=== PATIENT | female | born 1980 | race Caucasian/White ===

== ENCOUNTER 2017-08-27 11:54 | Inpatient (IN) | payer OTHER ==
[2017-08-27 13:03] VITALS: BMI 20.9
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
[2017-08-27] MEDS ORDERED: MAGNESIUM CITRATE 300 ML BOTTLE PO PRN (16:40)
[2017-08-27] MEDS ORDERED: MENTHOL/PHENOL 1 EACH UD MM PRN (16:40)
[2017-08-27] MEDS ORDERED: LOPERAMIDE HCL 2 MG CAPSULE PO PRN (16:40)
[2017-08-27] MEDS ORDERED: guaiFENesin/D-METHORPHAN HB 10 ML UNIT-DOSE CUPS PO PRN (16:40)
[2017-08-27] MEDS ORDERED: MAG HYDROX/AL HYDROX/SIMETH 30 ML UNIT-DOSE CUP PO PRN (16:40)
[2017-08-27] MEDS ORDERED: P-EPHED 60MG/TRIPROLIDI 2.5MG TABLET PO PRN (16:40)
[2017-08-27] MEDS: SULFAMETHOXAZOLE/TRIMETHOPRIM 800MG/160MG D.S. TABLET PO SCH ×2 (20:32→22:09)
[2017-08-27] MEDS: THIAMINE HCL 100 MG TABLET (FP) PO SCH (21:47)
[2017-08-27] MEDS: GABAPENTIN 400 MG CAPSULE (FP) PO SCH (21:47)
[2017-08-27] MEDS ORDERED: traZODone HCL 150 MG TABLET PO SCH (22:00)
[2017-08-27] MEDS: BACITRACIN 0.9 GM PACKET TP SCH (22:09)
[2017-08-27] MEDS: traZODone HCL 50 MG TABLET (FP) PO SCH (22:10)
[2017-08-28] MEDS: GABAPENTIN 400 MG CAPSULE (FP) PO SCH ×3 (06:44→21:43)
[2017-08-28] MEDS ORDERED: METHADONE HCL 40 MG DISPERSABLE TABLET PO SCH (07:00)
[2017-08-28] MEDS ORDERED: METHADONE HCL 10 MG TABLET ONE (07:07)
[2017-08-28] MEDS ORDERED: METHADONE HCL 40 MG DISPERSABLE TABLET ONE (07:08)
[2017-08-28] MEDS: METHADONE 80 MG, METHADONE 10 MG PO SCH (07:11)
[2017-08-28] MEDS: SULFAMETHOXAZOLE/TRIMETHOPRIM 800MG/160MG D.S. TABLET PO SCH ×2 (10:09→21:43)
[2017-08-28] MEDS: BACITRACIN 0.9 GM PACKET TP SCH ×2 (10:09→21:45)
[2017-08-28] MEDS: PRENATAL VITAMINS W/ FOLIC ACID TABLET (FP) PO SCH (10:09)
[2017-08-28] MEDS: OLANZapine 2.5 MG TABLET PO PRN (10:10)
[2017-08-28] MEDS: MAGNESIUM HYDROX 2400MG/30ML ORAL SUSPENSION 30 ML CUP PO PRN (10:32)
[2017-08-28 10:46] LABS: URINE APPEARANCE CLEAR; URINE BILIRUBIN NEGATIVE (NEGATIVE); URINE BLOOD NEGATIVE (NEGATIVE); URINE COLOR LT. YELLOW; URINE GLUCOSE (UA) NEGATIVE (NEGATIVE); URINE KETONE NEGATIVE (NEGATIVE); URINE NITRITE NEGATIVE (NEGATIVE); URINE PROTEIN NEGATIVE (NEGATIVE); URINE UROBILINOGEN 0.2 mg/dL (0.2-1.0)
--- NOTE | 2017-08-28 12:47 | EKG ---
Test Reason : Blood Pressure : / mmHG Vent. Rate : 082 BPM Atrial Rate : 082 BPM P-R Int : 146 ms QRS Dur : 084 ms QT Int : 428 ms P-R-T Axes : 064 063 042 degrees QTc Int : 500 ms NORMAL SINUS RHYTHM POSSIBLE LEFT ATRIAL ENLARGEMENT PROLONGED QT ABNORMAL ECG NO PREVIOUS ECGS AVAILABLE Confirmed by PADMA DEVI MD ([id number]) on 08/28/2017 12:46:29 PM Referred By: Confirmed By:PADMA DEVI MD
[2017-08-28 13:47] LABS: MCHC 31.5 g/dl (32.0-36.0); MEAN CELL VOLUME 82.8 fl (80-96); MEAN PLT VOLUME 7.9 fl (7.5-11.1); PLATELET COUNT 491 K/MM3 (134-434); RDW 15.3 % (11.6-15.6); WHITE BLOOD COUNT 6.9 K/mm3 (4.0-10.0)
[2017-08-28 13:52] LABS: ALBUMIN 3.6 g/dl (3.4-5.0); ANION GAP 8 (8-16); CO2 32 mmol/L (21-32); GLUCOSE,RANDOM 56 mg/dL (74-106); SGOT/AST 42 U/L (15-37); SGPT/ALT 56 U/L (12-78)
[2017-08-28 13:53] LABS: ALK PHOS 92 U/L (45-117); BILIRUBIN,TOTAL 0.3 mg/dL (0.2-1.0); CALCIUM 10.7 mg/dL (8.5-10.1); CREATININE 1.1 mg/dL (0.55-1.02); TOT PROT 7.5 g/dl (6.4-8.2)
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
[2017-08-28 14:53] LABS: HIV 1 & 2 AB NEGATIVE; HIV 1 AGp24 NEGATIVE
[2017-08-28 20:12] LABS: URINE LEUK ESTERASE Negative (NEGATIVE)
[2017-08-28] MEDS: traZODone HCL 50 MG TABLET (FP) PO SCH (21:43)
[2017-08-28] MEDS: THIAMINE HCL 100 MG TABLET (FP) PO SCH (21:44)
[2017-08-29] MEDS ORDERED: METHADONE HCL 40 MG DISPERSABLE TABLET ONE (03:25)
[2017-08-29] MEDS ORDERED: METHADONE HCL 10 MG TABLET ONE (03:25)
[2017-08-29] MEDS: METHADONE 80 MG, METHADONE 10 MG PO SCH (07:04)
[2017-08-29] MEDS: GABAPENTIN 400 MG CAPSULE (FP) PO SCH ×3 (07:05→21:51)
[2017-08-29] MEDS: SULFAMETHOXAZOLE/TRIMETHOPRIM 800MG/160MG D.S. TABLET PO SCH ×2 (10:29→22:34)
[2017-08-29] MEDS: BACITRACIN 0.9 GM PACKET TP SCH ×2 (10:29→21:51)
[2017-08-29] MEDS: PRENATAL VITAMINS W/ FOLIC ACID TABLET (FP) PO SCH (10:29)
[2017-08-29] MEDS: hydrOXYzine PAMOATE 50 MG CAPSULE (FP) PO PRN ×2 (11:16→21:52)
[2017-08-29] MEDS: MAGNESIUM HYDROX 2400MG/30ML ORAL SUSPENSION 30 ML CUP PO PRN (11:17)
--- NOTE | 2017-08-29 13:09 | EKG ---
Test Reason : Blood Pressure : / mmHG Vent. Rate : 069 BPM Atrial Rate : 069 BPM P-R Int : 144 ms QRS Dur : 078 ms QT Int : 424 ms P-R-T Axes : 049 069 043 degrees QTc Int : 454 ms NORMAL SINUS RHYTHM POSSIBLE LEFT ATRIAL ENLARGEMENT BORDERLINE ECG WHEN COMPARED WITH ECG OF 27-AUG-2017 22:33, NO SIGNIFICANT CHANGE WAS FOUND Confirmed by MAGAN PETER MD ([id number]) on 08/29/2017 1:09:09 PM Referred By: Confirmed By:MAGAN PETER MD
[2017-08-29] MEDS: OLANZapine 2.5 MG TABLET PO PRN (13:30)
[2017-08-29] MEDS ORDERED: PT OWN MED DRAWER 7, Y5N ONE (19:52)
[2017-08-29] MEDS: THIAMINE HCL 100 MG TABLET (FP) PO SCH (21:51)
[2017-08-29] MEDS: traZODone HCL 50 MG TABLET (FP) PO SCH (21:51)
[2017-08-30] MEDS ORDERED: METHADONE HCL 10 MG TABLET ONE (05:52)
[2017-08-30] MEDS ORDERED: METHADONE HCL 40 MG DISPERSABLE TABLET ONE (05:52)
[2017-08-30] MEDS: METHADONE 80 MG, METHADONE 10 MG PO SCH (06:33)
[2017-08-30] MEDS: GABAPENTIN 400 MG CAPSULE (FP) PO SCH ×3 (06:34→21:59)
[2017-08-30] MEDS: SULFAMETHOXAZOLE/TRIMETHOPRIM 800MG/160MG D.S. TABLET PO SCH ×2 (10:29→21:58)
[2017-08-30] MEDS: PRENATAL VITAMINS W/ FOLIC ACID TABLET (FP) PO SCH (10:29)
[2017-08-30] MEDS: BACITRACIN 0.9 GM PACKET TP SCH ×2 (10:29→21:58)
[2017-08-30] MEDS: NICOTINE POLACRILEX 2 MG GUM BC PRN (13:04)
[2017-08-30] MEDS: OLANZapine 2.5 MG TABLET PO PRN (13:51)
[2017-08-30] MEDS: DOCUSATE SODIUM 100 MG CAPSULE (FP) PO SCH ×2 (15:05→21:59)
[2017-08-30] MEDS: THIAMINE HCL 100 MG TABLET (FP) PO SCH (21:58)
[2017-08-30] MEDS: traZODone HCL 50 MG TABLET (FP) PO SCH (21:59)
[2017-08-31] MEDS ORDERED: METHADONE HCL 10 MG TABLET ONE (03:25)
[2017-08-31] MEDS ORDERED: METHADONE HCL 40 MG DISPERSABLE TABLET ONE (03:26)
[2017-08-31] MEDS: METHADONE 80 MG, METHADONE 10 MG PO SCH (06:47)
[2017-08-31] MEDS: GABAPENTIN 400 MG CAPSULE (FP) PO SCH ×3 (06:48→21:43)
[2017-08-31] MEDS: IBUPROFEN 400 MG TABLET (FP) PO PRN (07:25)
[2017-08-31] MEDS: SULFAMETHOXAZOLE/TRIMETHOPRIM 800MG/160MG D.S. TABLET PO SCH ×2 (10:05→21:43)
[2017-08-31] MEDS: BACITRACIN 0.9 GM PACKET TP SCH ×2 (10:05→21:43)
[2017-08-31] MEDS: PRENATAL VITAMINS W/ FOLIC ACID TABLET (FP) PO SCH (10:06)
[2017-08-31] MEDS: DOCUSATE SODIUM 100 MG CAPSULE (FP) PO SCH ×2 (10:06→21:43)
[2017-08-31] MEDS: hydrOXYzine PAMOATE 50 MG CAPSULE (FP) PO PRN (10:07)
[2017-08-31] MEDS: MAGNESIUM HYDROX 2400MG/30ML ORAL SUSPENSION 30 ML CUP PO PRN (10:07)
[2017-08-31] MEDS: THIAMINE HCL 100 MG TABLET (FP) PO SCH (21:43)
[2017-08-31] MEDS: traZODone HCL 50 MG TABLET (FP) PO SCH (21:43)
[2017-08-31] MEDS: OLANZapine 2.5 MG TABLET PO PRN (21:45)
[2017-09-01] MEDS ORDERED: METHADONE HCL 10 MG TABLET ONE (03:26)
[2017-09-01] MEDS ORDERED: METHADONE HCL 40 MG DISPERSABLE TABLET ONE (03:26)
[2017-09-01] MEDS: METHADONE 80 MG, METHADONE 10 MG PO SCH (06:30)
[2017-09-01] MEDS: GABAPENTIN 400 MG CAPSULE (FP) PO SCH ×3 (06:30→21:38)
[2017-09-01] MEDS: BACITRACIN 0.9 GM PACKET TP SCH ×2 (10:24→21:38)
[2017-09-01] MEDS: PRENATAL VITAMINS W/ FOLIC ACID TABLET (FP) PO SCH (10:25)
[2017-09-01] MEDS: SULFAMETHOXAZOLE/TRIMETHOPRIM 800MG/160MG D.S. TABLET PO SCH ×2 (10:25→21:38)
[2017-09-01] MEDS: DOCUSATE SODIUM 100 MG CAPSULE (FP) PO SCH ×2 (10:25→21:39)
[2017-09-01] MEDS: OLANZapine 2.5 MG TABLET PO PRN (13:02)
[2017-09-01] MEDS ORDERED: PT OWN MED DRAWER 7, Y5N ONE (19:29)
[2017-09-01] MEDS: traZODone HCL 50 MG TABLET (FP) PO SCH (21:39)
[2017-09-01] MEDS: THIAMINE HCL 100 MG TABLET (FP) PO SCH (21:39)
[2017-09-02] MEDS ORDERED: METHADONE HCL 10 MG TABLET ONE (05:17)
[2017-09-02] MEDS ORDERED: METHADONE HCL 40 MG DISPERSABLE TABLET ONE (05:18)
[2017-09-02] MEDS: METHADONE 80 MG, METHADONE 10 MG PO SCH (06:16)
[2017-09-02] MEDS: GABAPENTIN 400 MG CAPSULE (FP) PO SCH ×3 (06:17→21:47)
[2017-09-02] MEDS: OLANZapine 2.5 MG TABLET PO PRN (08:44)
[2017-09-02] MEDS: IBUPROFEN 400 MG TABLET (FP) PO PRN (08:44)
[2017-09-02] MEDS: DOCUSATE SODIUM 100 MG CAPSULE (FP) PO SCH ×3 (10:30→21:47)
[2017-09-02] MEDS: PRENATAL VITAMINS W/ FOLIC ACID TABLET (FP) PO SCH (10:30)
[2017-09-02] MEDS: BACITRACIN 0.9 GM PACKET TP SCH ×2 (10:30→21:46)
[2017-09-02] MEDS: SULFAMETHOXAZOLE/TRIMETHOPRIM 800MG/160MG D.S. TABLET PO SCH ×2 (10:30→21:47)
[2017-09-02] MEDS: THIAMINE HCL 100 MG TABLET (FP) PO SCH (21:46)
[2017-09-02] MEDS: traZODone HCL 50 MG TABLET (FP) PO SCH (21:47)
[2017-09-02] MEDS: hydrOXYzine PAMOATE 50 MG CAPSULE (FP) PO PRN (21:48)
[2017-09-02] MEDS: IBUPROFEN 600 MG TABLET (FP) PO PRN (21:49)
[2017-09-03] MEDS ORDERED: METHADONE HCL 40 MG DISPERSABLE TABLET ONE (05:46)
[2017-09-03] MEDS ORDERED: METHADONE HCL 10 MG TABLET ONE (05:46)
[2017-09-03] MEDS: GABAPENTIN 400 MG CAPSULE (FP) PO SCH ×3 (06:11→21:47)
[2017-09-03] MEDS: METHADONE 80 MG, METHADONE 10 MG PO SCH (06:11)
[2017-09-03] MEDS: IBUPROFEN 600 MG TABLET (FP) PO PRN ×3 (06:12→21:48)
[2017-09-03] MEDS: PRENATAL VITAMINS W/ FOLIC ACID TABLET (FP) PO SCH (10:20)
[2017-09-03] MEDS: BACITRACIN 0.9 GM PACKET TP SCH ×2 (10:20→21:47)
[2017-09-03] MEDS: DOCUSATE SODIUM 100 MG CAPSULE (FP) PO SCH ×2 (10:21→21:47)
[2017-09-03] MEDS: hydrOXYzine PAMOATE 50 MG CAPSULE (FP) PO PRN ×2 (10:21→21:48)
[2017-09-03] MEDS: ACETAMINOPHEN 325 MG TABLET (FP) PO PRN (10:21)
[2017-09-03] MEDS: SULFAMETHOXAZOLE/TRIMETHOPRIM 800MG/160MG D.S. TABLET PO SCH ×2 (10:21→21:46)
[2017-09-03] MEDS: THIAMINE HCL 100 MG TABLET (FP) PO SCH (21:46)
[2017-09-03] MEDS: traZODone HCL 50 MG TABLET (FP) PO SCH (21:47)
[2017-09-04] MEDS ORDERED: METHADONE 80 MG, METHADONE 10 MG PO SCH (06:00)
[2017-09-04] MEDS ORDERED: METHADONE HCL 10 MG TABLET ONE (06:25)
[2017-09-04] MEDS ORDERED: METHADONE HCL 40 MG DISPERSABLE TABLET ONE (06:25)
[2017-09-04] MEDS: METHADONE 80 MG, METHADONE 10 MG PO SCH (06:33)
[2017-09-04] MEDS: GABAPENTIN 400 MG CAPSULE (FP) PO SCH ×3 (06:34→21:50)
[2017-09-04] MEDS: IBUPROFEN 600 MG TABLET (FP) PO PRN (08:41)
[2017-09-04] MEDS: hydrOXYzine PAMOATE 50 MG CAPSULE (FP) PO PRN ×2 (08:42→13:13)
[2017-09-04] MEDS: DOCUSATE SODIUM 100 MG CAPSULE (FP) PO SCH ×2 (10:25→21:50)
[2017-09-04] MEDS: SULFAMETHOXAZOLE/TRIMETHOPRIM 800MG/160MG D.S. TABLET PO SCH ×2 (10:25→21:50)
[2017-09-04] MEDS: PRENATAL VITAMINS W/ FOLIC ACID TABLET (FP) PO SCH (10:25)
[2017-09-04] MEDS: BACITRACIN 0.9 GM PACKET TP SCH ×2 (10:25→21:50)
[2017-09-04] MEDS: ACETAMINOPHEN 325 MG TABLET (FP) PO PRN (13:13)
[2017-09-04] MEDS: THIAMINE HCL 100 MG TABLET (FP) PO SCH (21:49)
[2017-09-04] MEDS: traZODone HCL 50 MG TABLET (FP) PO SCH (21:50)
[2017-09-05] MEDS ORDERED: METHADONE HCL 40 MG DISPERSABLE TABLET ONE (02:58)
[2017-09-05] MEDS ORDERED: METHADONE HCL 10 MG TABLET ONE (02:58)
[2017-09-05] MEDS: GABAPENTIN 400 MG CAPSULE (FP) PO SCH ×3 (06:17→21:45)
[2017-09-05] MEDS: METHADONE 80 MG, METHADONE 10 MG PO SCH (06:17)
[2017-09-05] MEDS: PRENATAL VITAMINS W/ FOLIC ACID TABLET (FP) PO SCH (10:21)
[2017-09-05] MEDS: BACITRACIN 0.9 GM PACKET TP SCH ×2 (10:21→21:46)
[2017-09-05] MEDS: DOCUSATE SODIUM 100 MG CAPSULE (FP) PO SCH ×2 (10:21→21:45)
[2017-09-05] MEDS: SULFAMETHOXAZOLE/TRIMETHOPRIM 800MG/160MG D.S. TABLET PO SCH ×2 (10:21→21:45)
[2017-09-05] MEDS: hydrOXYzine PAMOATE 50 MG CAPSULE (FP) PO PRN (10:23)
[2017-09-05] MEDS: IBUPROFEN 600 MG TABLET (FP) PO PRN (10:23)
[2017-09-05] MEDS: NICOTINE POLACRILEX 2 MG GUM BC PRN ×2 (10:54→13:17)
[2017-09-05] MEDS: THIAMINE HCL 100 MG TABLET (FP) PO SCH (21:45)
[2017-09-05] MEDS: traZODone HCL 50 MG TABLET (FP) PO SCH (21:45)
[2017-09-06] MEDS ORDERED: METHADONE HCL 10 MG TABLET ONE (03:32)
[2017-09-06] MEDS ORDERED: METHADONE HCL 40 MG DISPERSABLE TABLET ONE (03:32)
[2017-09-06] MEDS: METHADONE 80 MG, METHADONE 10 MG PO SCH (06:14)
[2017-09-06] MEDS: GABAPENTIN 400 MG CAPSULE (FP) PO SCH ×3 (06:15→22:06)
[2017-09-06] MEDS: BACITRACIN 0.9 GM PACKET TP SCH ×2 (10:28→22:06)
[2017-09-06] MEDS: DOCUSATE SODIUM 100 MG CAPSULE (FP) PO SCH ×2 (10:28→22:06)
[2017-09-06] MEDS: SULFAMETHOXAZOLE/TRIMETHOPRIM 800MG/160MG D.S. TABLET PO SCH (10:28)
[2017-09-06] MEDS: PRENATAL VITAMINS W/ FOLIC ACID TABLET (FP) PO SCH (10:28)
[2017-09-06] MEDS: IBUPROFEN 600 MG TABLET (FP) PO PRN (10:30)
[2017-09-06] MEDS: hydrOXYzine PAMOATE 50 MG CAPSULE (FP) PO PRN (10:30)
[2017-09-06] MEDS ORDERED: PT OWN MED DRAWER 7, Y5N ONE (12:38)
[2017-09-06] MEDS: NICOTINE POLACRILEX 2 MG GUM BC PRN (13:12)
[2017-09-06] MEDS ORDERED: COLLOIDAL OATMEAL 1 BAR EACH TP PRN (14:09)
[2017-09-06] MEDS: THIAMINE HCL 100 MG TABLET (FP) PO SCH (22:06)
[2017-09-06] MEDS: traZODone HCL 50 MG TABLET (FP) PO SCH (22:06)
[2017-09-07] MEDS ORDERED: METHADONE HCL 40 MG DISPERSABLE TABLET ONE (06:01)
[2017-09-07] MEDS ORDERED: METHADONE HCL 10 MG TABLET ONE (06:01)
[2017-09-07] MEDS: GABAPENTIN 400 MG CAPSULE (FP) PO SCH ×3 (06:38→21:51)
[2017-09-07] MEDS: METHADONE 80 MG, METHADONE 10 MG PO SCH (06:38)
[2017-09-07] MEDS: BACITRACIN 0.9 GM PACKET TP SCH ×2 (10:23→21:51)
[2017-09-07] MEDS: PRENATAL VITAMINS W/ FOLIC ACID TABLET (FP) PO SCH (10:24)
[2017-09-07] MEDS: DOCUSATE SODIUM 100 MG CAPSULE (FP) PO SCH ×2 (10:24→21:51)
[2017-09-07] MEDS: IBUPROFEN 600 MG TABLET (FP) PO PRN (10:25)
[2017-09-07] MEDS: hydrOXYzine PAMOATE 50 MG CAPSULE (FP) PO PRN (10:25)
[2017-09-07] MEDS: traZODone HCL 50 MG TABLET (FP) PO SCH (21:51)
[2017-09-07] MEDS: THIAMINE HCL 100 MG TABLET (FP) PO SCH (21:51)
[2017-09-08] MEDS ORDERED: METHADONE HCL 10 MG TABLET ONE (05:54)
[2017-09-08] MEDS ORDERED: METHADONE HCL 40 MG DISPERSABLE TABLET ONE (05:54)
[2017-09-08] MEDS: GABAPENTIN 400 MG CAPSULE (FP) PO SCH ×3 (06:47→21:46)
[2017-09-08] MEDS: METHADONE 80 MG, METHADONE 10 MG PO SCH (06:47)
[2017-09-08] MEDS: IBUPROFEN 600 MG TABLET (FP) PO PRN (07:53)
[2017-09-08] MEDS: hydrOXYzine PAMOATE 50 MG CAPSULE (FP) PO PRN ×2 (07:53→13:37)
[2017-09-08] MEDS: BACITRACIN 0.9 GM PACKET TP SCH ×2 (10:19→21:45)
[2017-09-08] MEDS: NICOTINE POLACRILEX 2 MG GUM BC PRN ×2 (10:19→13:38)
[2017-09-08] MEDS: DOCUSATE SODIUM 100 MG CAPSULE (FP) PO SCH ×2 (10:19→21:46)
[2017-09-08] MEDS: PRENATAL VITAMINS W/ FOLIC ACID TABLET (FP) PO SCH (10:19)
[2017-09-08] MEDS: ACETAMINOPHEN 325 MG TABLET (FP) PO PRN (13:38)
[2017-09-08] MEDS: THIAMINE HCL 100 MG TABLET (FP) PO SCH (21:46)
[2017-09-08] MEDS: traZODone HCL 50 MG TABLET (FP) PO SCH (21:46)
[2017-09-09] MEDS ORDERED: METHADONE HCL 40 MG DISPERSABLE TABLET ONE (05:59)
[2017-09-09] MEDS ORDERED: METHADONE HCL 10 MG TABLET ONE (05:59)
[2017-09-09] MEDS: GABAPENTIN 400 MG CAPSULE (FP) PO SCH ×3 (06:46→21:48)
[2017-09-09] MEDS: METHADONE 80 MG, METHADONE 10 MG PO SCH (06:46)
[2017-09-09] MEDS: PRENATAL VITAMINS W/ FOLIC ACID TABLET (FP) PO SCH (10:27)
[2017-09-09] MEDS: DOCUSATE SODIUM 100 MG CAPSULE (FP) PO SCH ×2 (10:27→21:47)
[2017-09-09] MEDS: BACITRACIN 0.9 GM PACKET TP SCH ×2 (10:27→21:45)
[2017-09-09] MEDS: IBUPROFEN 600 MG TABLET (FP) PO PRN (10:29)
[2017-09-09] MEDS: NICOTINE POLACRILEX 2 MG GUM BC PRN ×2 (10:30→13:16)
[2017-09-09] MEDS: hydrOXYzine PAMOATE 50 MG CAPSULE (FP) PO PRN (10:30)
[2017-09-09] MEDS: traZODone HCL 50 MG TABLET (FP) PO SCH (21:47)
[2017-09-09] MEDS: THIAMINE HCL 100 MG TABLET (FP) PO SCH (21:47)
[2017-09-10] MEDS ORDERED: METHADONE HCL 10 MG TABLET ONE ×2 (03:15→03:17)
[2017-09-10] MEDS ORDERED: METHADONE HCL 40 MG DISPERSABLE TABLET ONE (03:15)
[2017-09-10] MEDS: METHADONE 80 MG, METHADONE 10 MG PO SCH (06:39)
[2017-09-10] MEDS: GABAPENTIN 400 MG CAPSULE (FP) PO SCH ×3 (06:40→21:46)
[2017-09-10] MEDS: BACITRACIN 0.9 GM PACKET TP SCH ×2 (10:19→21:47)
[2017-09-10] MEDS: PRENATAL VITAMINS W/ FOLIC ACID TABLET (FP) PO SCH (10:20)
[2017-09-10] MEDS: DOCUSATE SODIUM 100 MG CAPSULE (FP) PO SCH ×2 (10:20→21:47)
[2017-09-10] MEDS: AMMONIUM LACTATE 12% LOTION 225 GM BOTTLE TP PRN (10:21)
[2017-09-10] MEDS: IBUPROFEN 600 MG TABLET (FP) PO PRN (10:22)
[2017-09-10] MEDS: hydrOXYzine PAMOATE 50 MG CAPSULE (FP) PO PRN (10:22)
[2017-09-10] MEDS: NICOTINE POLACRILEX 2 MG GUM BC PRN (10:24)
[2017-09-10] MEDS: THIAMINE HCL 100 MG TABLET (FP) PO SCH (21:46)
[2017-09-10] MEDS: traZODone HCL 50 MG TABLET (FP) PO SCH (21:46)
[2017-09-11] MEDS ORDERED: METHADONE HCL 10 MG TABLET ONE (06:25)
[2017-09-11] MEDS ORDERED: METHADONE HCL 40 MG DISPERSABLE TABLET ONE (06:25)
[2017-09-11] MEDS: METHADONE 80 MG, METHADONE 10 MG PO SCH (06:28)
[2017-09-11] MEDS: GABAPENTIN 400 MG CAPSULE (FP) PO SCH ×3 (06:29→21:53)
[2017-09-11] MEDS: AMMONIUM LACTATE 12% LOTION 225 GM BOTTLE TP PRN (10:36)
[2017-09-11] MEDS: BACITRACIN 0.9 GM PACKET TP SCH ×2 (10:36→21:53)
[2017-09-11] MEDS: hydrOXYzine PAMOATE 50 MG CAPSULE (FP) PO PRN (10:36)
[2017-09-11] MEDS: IBUPROFEN 600 MG TABLET (FP) PO PRN (10:36)
[2017-09-11] MEDS: DOCUSATE SODIUM 100 MG CAPSULE (FP) PO SCH ×2 (10:36→21:53)
[2017-09-11] MEDS: PRENATAL VITAMINS W/ FOLIC ACID TABLET (FP) PO SCH (10:36)
[2017-09-11] MEDS: NICOTINE POLACRILEX 2 MG GUM BC PRN (10:38)
[2017-09-11] MEDS: THIAMINE HCL 100 MG TABLET (FP) PO SCH (21:52)
[2017-09-11] MEDS: traZODone HCL 50 MG TABLET (FP) PO SCH (21:53)
[2017-09-12] MEDS ORDERED: METHADONE HCL 10 MG TABLET ONE (03:15)
[2017-09-12] MEDS ORDERED: METHADONE HCL 40 MG DISPERSABLE TABLET ONE (03:15)
[2017-09-12] MEDS: GABAPENTIN 400 MG CAPSULE (FP) PO SCH ×3 (06:32→21:49)
[2017-09-12] MEDS: METHADONE 80 MG, METHADONE 10 MG PO SCH (06:32)
[2017-09-12] MEDS: NICOTINE POLACRILEX 2 MG GUM BC PRN ×2 (10:02→13:11)
[2017-09-12] MEDS: hydrOXYzine PAMOATE 50 MG CAPSULE (FP) PO PRN (10:02)
[2017-09-12] MEDS: MAGNESIUM HYDROX 2400MG/30ML ORAL SUSPENSION 30 ML CUP PO PRN (10:02)
[2017-09-12] MEDS: IBUPROFEN 600 MG TABLET (FP) PO PRN ×2 (10:02→21:51)
[2017-09-12] MEDS: BACITRACIN 0.9 GM PACKET TP SCH ×2 (10:03→21:49)
[2017-09-12] MEDS: PRENATAL VITAMINS W/ FOLIC ACID TABLET (FP) PO SCH (10:03)
[2017-09-12] MEDS: DOCUSATE SODIUM 100 MG CAPSULE (FP) PO SCH ×2 (10:03→21:49)
[2017-09-12] MEDS ORDERED: SODIUM PHOSPHATE/NA BIPHOS 133 ML ENEMA PR ONE (14:45)
[2017-09-12] MEDS: THIAMINE HCL 100 MG TABLET (FP) PO SCH (21:49)
[2017-09-12] MEDS: traZODone HCL 50 MG TABLET (FP) PO SCH (21:49)
[2017-09-13] MEDS ORDERED: METHADONE HCL 10 MG TABLET ONE (06:00)
[2017-09-13] MEDS ORDERED: METHADONE HCL 40 MG DISPERSABLE TABLET ONE (06:00)
[2017-09-13] MEDS: METHADONE 80 MG, METHADONE 10 MG PO SCH (06:35)
[2017-09-13] MEDS: IBUPROFEN 600 MG TABLET (FP) PO PRN (06:36)
[2017-09-13] MEDS: GABAPENTIN 400 MG CAPSULE (FP) PO SCH ×2 (06:36→22:03)
[2017-09-13] MEDS: hydrOXYzine PAMOATE 50 MG CAPSULE (FP) PO PRN (06:36)
[2017-09-13] MEDS: PRENATAL VITAMINS W/ FOLIC ACID TABLET (FP) PO SCH (10:33)
[2017-09-13] MEDS: DOCUSATE SODIUM 100 MG CAPSULE (FP) PO SCH ×2 (10:34→22:02)
[2017-09-13] MEDS: BACITRACIN 0.9 GM PACKET TP SCH ×2 (10:34→22:03)
[2017-09-13] MEDS ORDERED: MINERAL OIL ENEMA 133 ML ENEMA PR ONE (12:57)
--- NOTE | 2017-09-13 14:36 | PN ---
Psychiatric Progress Note Vital Signs: Vital Signs Period Temp Pulse Resp BP Sys/Schmidt Pulse Ox Last 24 Hr 97.6 F 79 18-18 104/71 Date of Session: 09/13/17 Chief Complaint:: "anxiety, nightmares" HPI: Patient is addressing cocaine, alcohol, opioid dependence comorbid PTSD and Bipolar disorder. ROS: Significant for Hep C,Anemia,H/O Cholecystectomy Current Medications: Active Medications Generic Name Dose Route Start Last Admin Trade Name Freq PRN Reason Stop Dose Admin Acetaminophen 650 mg 08/27/17 16:40 09/08/17 13:38 Tylenol - PO 650 mg Q4H PRN Administration PAIN Al Hydroxide/Mg Hydroxide 30 ml 08/27/17 16:40 Mylanta Oral Suspension - PO Q6H PRN DYSPEPSIA Bacitracin 0.9 gm 08/27/17 22:00 09/13/17 10:34 Bacitracin - TP 0.9 gm BID ZABRINA Administration Bupropion HCl 300 mg 08/27/17 20:15 09/13/17 10:34 Wellbutrin Xl - PO 300 mg DAILY ZABRINA Administration Colloidal Oatmeal 1 applic 09/06/17 14:09 09/07/17 10:27 Aveeno Soap - TP 1 applic DAILY PRN Administration HYGEINE Docusate Sodium 100 mg 08/30/17 14:30 09/13/17 10:34 Colace - PO 100 mg BID ZABRINA Administration Eucalyptus/Menthol/Phenol/Sorbitol 1 each 08/27/17 16:40 Cepastat Lozenge - MM Q4H PRN SORE THROAT Gabapentin 800 mg 08/27/17 22:00 09/13/17 06:36 Neurontin - PO 800 mg TID ZABRINA Administration Guaifenesin 10 ml 08/27/17 16:40 Robitussin Dm - PO Q6H PRN COUGH Hydroxyzine Pamoate 50 mg 08/27/17 16:40 09/13/17 06:36 Vistaril - PO 50 mg Q4H PRN Administration AGITATION Ibuprofen 600 mg 09/02/17 10:44 09/13/17 06:36 Motrin - PO 600 mg Q6H PRN Administration SEVERE PAIN Lactic Acid 1 applic 09/09/17 15:47 09/11/17 10:36 Lac-Hydrin 12 TP 1 applic DAILY PRN Administration DRY SKIN Loperamide HCl 4 mg 11/28/17 16:40 Imodium - PO Q6H PRN DIARRHEA Magnesium Citrate 300 ml 08/27/17 16:40 08/28/17 15:06 Citroma - PO 300 ml Q48H PRN Administration CONSTIPATION Magnesium Hydroxide 30 ml 08/27/17 16:40 09/12/17 10:02 Milk Of Magnesia - PO 30 ml DAILY PRN Administration CONSTIPATION Methadone HCl 80 mg/ Methadone 90 mg 09/11/17 06:00 09/13/17 06:35 HCl 10 mg PO 90 mg DAILY@0600 ZABRINA Administration Nicotine Polacrilex 2 mg 08/27/17 16:40 09/12/17 13:11 Nicorette Gum - BC 2 mg Q2H PRN Administration NICOTINE REPLACEMENT RX Olanzapine 2.5 mg 08/27/17 20:06 09/02/17 08:44 Zyprexa - PO 2.5 mg Q8H PRN Administration ANXIETY Multivit/Folic Acid/Iron 1 tab 08/28/17 10:00 09/13/17 10:33 Vitamins (Sjr) - PO 1 tab DAILY ZABRINA Administration Pseudoephedrine/Triprolidine 1 combo 08/27/17 16:40 08/28/17 10:32 Actifed - PO 1 combo TID PRN Administration NASAL CONGESTION Thiamine HCl 100 mg 08/27/17 22:00 09/12/17 21:49 Vitamin B1 - PO 100 mg HS ZABRINA Administration Trazodone HCl 150 mg 08/27/17 22:00 09/12/17 21:49 Desyrel - PO 150 mg HS ZABRINA Administration Medication(s) Change(s): d/c Vistaril, add Buspar 5 mg po tid, increase Trazodone 200 mg po hs. 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 Total face to face time:: 25 Mental Status Exam - Mental Status Exam Alert and Oriented to: Time, Place, Person Cognitive Function: Good Patient Appearance: Well Groomed Mood: Sad, Anxious Affect: Mood Congruent Patient Behavior: Appropriate, Cooperative Speech Pattern: Appropriate Voice Loudness: Normal Thought Process: Intact, Goal Oriented Thought Disorder: Not Present Hallucinations: Auditory (on and off voices calling her name) Suicidal Ideation: Denies Homicidal Ideation: Denies Insight/Judgement: Fair Sleep: Poorly, Difficulty falling asleep Appetite: Fair Muscle strength/Tone: Normal Gait/Station: Normal Psychiatric Treatment Plan - Problem List (1) Alcohol dependence Current Visit: Yes (2) Bipolar disorder (manic depression) Current Visit: Yes (3) Cocaine dependence Current Visit: Yes (4) Hepatitis C Current Visit: Yes (5) Nicotine dependence Current Visit: Yes Qualifiers: Nicotine product type: cigarettes Substance use status: uncomplicated Qualified Code(s): F17.210 - Nicotine dependence, cigarettes, uncomplicated (6) Opioid dependence on agonist therapy Current Visit: Yes (7) PTSD (post-traumatic stress disorder) Current Visit: Yes
[2017-09-13] MEDS: THIAMINE HCL 100 MG TABLET (FP) PO SCH (22:02)
[2017-09-13] MEDS ORDERED: PT OWN MED DRAWER 7, Y5N ONE (22:05)
[2017-09-13] MEDS: traZODone HCL 100 MG TABLET (FP) PO SCH (22:05)
[2017-09-13] MEDS: busPIRone HCL 5 MG TABLET PO SCH (23:57)
[2017-09-14] MEDS ORDERED: METHADONE HCL 10 MG TABLET ONE (06:44)
[2017-09-14] MEDS ORDERED: METHADONE HCL 40 MG DISPERSABLE TABLET ONE (06:44)
[2017-09-14] MEDS ORDERED: PT OWN MED DRAWER 7, Y5N ONE ×3 (06:49→19:49)
[2017-09-14] MEDS: METHADONE 80 MG, METHADONE 10 MG PO SCH (06:50)
[2017-09-14] MEDS: IBUPROFEN 600 MG TABLET (FP) PO PRN ×2 (06:50→21:46)
[2017-09-14] MEDS: GABAPENTIN 400 MG CAPSULE (FP) PO SCH ×4 (06:50→21:44)
[2017-09-14] MEDS: busPIRone HCL 5 MG TABLET PO SCH ×3 (07:52→21:44)
[2017-09-14] MEDS: BACITRACIN 0.9 GM PACKET TP SCH ×2 (10:06→22:06)
[2017-09-14] MEDS: DOCUSATE SODIUM 100 MG CAPSULE (FP) PO SCH ×2 (10:07→21:45)
[2017-09-14] MEDS: NICOTINE POLACRILEX 2 MG GUM BC PRN ×2 (10:07→13:17)
[2017-09-14] MEDS: PRENATAL VITAMINS W/ FOLIC ACID TABLET (FP) PO SCH (10:07)
[2017-09-14] MEDS: MAGNESIUM HYDROX 2400MG/30ML ORAL SUSPENSION 30 ML CUP PO PRN (13:17)
[2017-09-14] MEDS: traZODone HCL 100 MG TABLET (FP) PO SCH (21:45)
[2017-09-14] MEDS: THIAMINE HCL 100 MG TABLET (FP) PO SCH (22:06)
[2017-09-15] MEDS ORDERED: METHADONE HCL 10 MG TABLET ONE (03:30)
[2017-09-15] MEDS ORDERED: METHADONE HCL 40 MG DISPERSABLE TABLET ONE (03:31)
[2017-09-15] MEDS ORDERED: PT OWN MED DRAWER 7, Y5N ONE ×4 (03:32→19:53)
[2017-09-15] MEDS: METHADONE 80 MG, METHADONE 10 MG PO SCH (06:30)
[2017-09-15] MEDS: busPIRone HCL 5 MG TABLET PO SCH ×3 (06:30→21:48)
[2017-09-15] MEDS: GABAPENTIN 400 MG CAPSULE (FP) PO SCH ×3 (06:30→21:48)
[2017-09-15] MEDS: BACITRACIN 0.9 GM PACKET TP SCH ×2 (09:45→21:51)
[2017-09-15] MEDS: PRENATAL VITAMINS W/ FOLIC ACID TABLET (FP) PO SCH (09:46)
[2017-09-15] MEDS: DOCUSATE SODIUM 100 MG CAPSULE (FP) PO SCH ×2 (09:47→21:48)
[2017-09-15] MEDS: NICOTINE POLACRILEX 2 MG GUM BC PRN ×2 (09:47→13:24)
[2017-09-15] MEDS: IBUPROFEN 600 MG TABLET (FP) PO PRN ×2 (09:47→21:50)
[2017-09-15] MEDS: traZODone HCL 100 MG TABLET (FP) PO SCH (21:49)
[2017-09-15] MEDS: THIAMINE HCL 100 MG TABLET (FP) PO SCH (21:49)
[2017-09-16] MEDS ORDERED: METHADONE HCL 10 MG TABLET ONE (03:12)
[2017-09-16] MEDS ORDERED: METHADONE HCL 40 MG DISPERSABLE TABLET ONE (03:13)
[2017-09-16] MEDS: METHADONE 80 MG, METHADONE 10 MG PO SCH (06:38)
[2017-09-16] MEDS: GABAPENTIN 400 MG CAPSULE (FP) PO SCH ×3 (06:38→21:43)
[2017-09-16] MEDS: busPIRone HCL 5 MG TABLET PO SCH ×3 (06:39→21:43)
[2017-09-16] MEDS: PRENATAL VITAMINS W/ FOLIC ACID TABLET (FP) PO SCH (10:15)
[2017-09-16] MEDS: BACITRACIN 0.9 GM PACKET TP SCH ×2 (10:15→21:43)
[2017-09-16] MEDS: DOCUSATE SODIUM 100 MG CAPSULE (FP) PO SCH ×2 (10:15→22:25)
[2017-09-16] MEDS: NICOTINE POLACRILEX 2 MG GUM BC PRN ×2 (10:59→13:28)
[2017-09-16] MEDS: IBUPROFEN 600 MG TABLET (FP) PO PRN (11:00)
[2017-09-16] MEDS ORDERED: PT OWN MED DRAWER 7, Y5N ONE (11:59)
[2017-09-16] MEDS: traZODone HCL 100 MG TABLET (FP) PO SCH (21:43)
[2017-09-16] MEDS: THIAMINE HCL 100 MG TABLET (FP) PO SCH (21:44)
[2017-09-17] MEDS ORDERED: METHADONE HCL 10 MG TABLET ONE (05:50)
[2017-09-17] MEDS ORDERED: METHADONE HCL 40 MG DISPERSABLE TABLET ONE (05:51)
[2017-09-17] MEDS ORDERED: PT OWN MED DRAWER 7, Y5N ONE ×2 (05:52→12:16)
[2017-09-17] MEDS: METHADONE 80 MG, METHADONE 10 MG PO SCH (06:32)
[2017-09-17] MEDS: busPIRone HCL 5 MG TABLET PO SCH ×3 (06:32→21:51)
[2017-09-17] MEDS: GABAPENTIN 400 MG CAPSULE (FP) PO SCH ×3 (06:32→21:51)
[2017-09-17] MEDS: PRENATAL VITAMINS W/ FOLIC ACID TABLET (FP) PO SCH (10:33)
[2017-09-17] MEDS: BACITRACIN 0.9 GM PACKET TP SCH ×2 (10:33→21:51)
[2017-09-17] MEDS: IBUPROFEN 600 MG TABLET (FP) PO PRN (10:34)
[2017-09-17] MEDS: NICOTINE POLACRILEX 2 MG GUM BC PRN (13:14)
[2017-09-17] MEDS: traZODone HCL 100 MG TABLET (FP) PO SCH (21:51)
[2017-09-17] MEDS: THIAMINE HCL 100 MG TABLET (FP) PO SCH (21:51)
[2017-09-17] MEDS: DOCUSATE SODIUM 100 MG CAPSULE (FP) PO SCH (21:51)
[2017-09-18] MEDS ORDERED: METHADONE HCL 10 MG TABLET ONE (05:33)
[2017-09-18] MEDS ORDERED: METHADONE HCL 40 MG DISPERSABLE TABLET ONE (05:34)
[2017-09-18] MEDS: METHADONE 80 MG, METHADONE 10 MG PO SCH (05:55)
[2017-09-18] MEDS: GABAPENTIN 400 MG CAPSULE (FP) PO SCH (05:57)
[2017-09-18] MEDS: busPIRone HCL 5 MG TABLET PO SCH ×3 (05:57→21:31)
--- NOTE | 2017-09-18 06:43 | PN ---
[facility] Progress Note Note: Patient was seen and evaluated status post a fall. Patient states, " I got up too fast and fell back on my butt. This has happened to me before." Patient is alert and oriented to person, place and time. Denies pain, discomfort, dizziness or any other symptoms at this time. Patient reports history of anemia and vasovagal syncope. V/S B/P 104/66, HR 97, RR 18 and temp. 97.2. Will monitor patient and administer ibuprofen for pain as needed. Occurrence report completed.
[2017-09-18] MEDS: PRENATAL VITAMINS W/ FOLIC ACID TABLET (FP) PO SCH (10:09)
[2017-09-18] MEDS: BACITRACIN 0.9 GM PACKET TP SCH ×2 (10:09→21:30)
[2017-09-18] MEDS: IBUPROFEN 600 MG TABLET (FP) PO PRN (10:10)
[2017-09-18] MEDS: NICOTINE POLACRILEX 2 MG GUM BC PRN (10:11)
--- NOTE | 2017-09-18 11:50 | PN ---
Psychiatric Progress Note Vital Signs: Vital Signs Period Temp Pulse Resp BP Sys/Schmidt Pulse Ox Last 24 Hr 97.2 F-97.5 F 80-97 16-18 100-104/64-66 Date of Session: 09/18/17 Chief Complaint:: Discharge visit HPI: Alcohol,Opioid and Cocaine dependence comorbid with Bipolar disorder,PTSD. ROS: Hep C. Current Medications: Active Medications Generic Name Dose Route Start Last Admin Trade Name Freq PRN Reason Stop Dose Admin Acetaminophen 650 mg 08/27/17 16:40 09/08/17 13:38 Tylenol - PO 650 mg Q4H PRN Administration PAIN Al Hydroxide/Mg Hydroxide 30 ml 08/27/17 16:40 09/13/17 18:18 Mylanta Oral Suspension - PO 30 ml Q6H PRN Administration DYSPEPSIA Bacitracin 0.9 gm 08/27/17 22:00 09/18/17 10:09 Bacitracin - TP 0.9 gm BID ZABRINA Administration Bupropion HCl 300 mg 08/27/17 20:15 09/18/17 10:10 Wellbutrin Xl - PO 300 mg DAILY ZABRINA Administration Buspirone HCl 5 mg 09/13/17 22:00 09/18/17 05:57 Buspar - PO 5 mg TID ZABRINA Administration Colloidal Oatmeal 1 applic 09/06/17 14:09 09/07/17 10:27 Aveeno Soap - TP 1 applic DAILY PRN Administration HYGEINE Docusate Sodium 300 mg 09/16/17 22:00 09/17/17 21:51 Colace - PO 300 mg HS ZABRINA Administration Eucalyptus/Menthol/Phenol/Sorbitol 1 each 08/27/17 16:40 Cepastat Lozenge - MM Q4H PRN SORE THROAT Gabapentin 800 mg 08/27/17 22:00 09/18/17 05:57 Neurontin - PO 800 mg TID ZABRINA Administration Guaifenesin 10 ml 08/27/17 16:40 Robitussin Dm - PO Q6H PRN COUGH Ibuprofen 600 mg 09/02/17 10:44 09/18/17 10:10 Motrin - PO 600 mg Q6H PRN Administration SEVERE PAIN Lactic Acid 1 applic 09/09/17 15:47 09/11/17 10:36 Lac-Hydrin 12 TP 1 applic DAILY PRN Administration DRY SKIN Loperamide HCl 4 mg 08/27/17 16:40 Imodium - PO Q6H PRN DIARRHEA Magnesium Citrate 300 ml 08/27/17 16:40 08/28/17 15:06 Citroma - PO 300 ml Q48H PRN Administration CONSTIPATION Magnesium Hydroxide 30 ml 08/27/17 16:40 09/14/17 13:17 Milk Of Magnesia - PO 30 ml DAILY PRN Administration CONSTIPATION Methadone HCl 80 mg/ Methadone 90 mg 09/19/17 06:00 HCl 10 mg PO 09/25/17 05:59 DAILY@0600 ZABRINA Nicotine Polacrilex 2 mg 08/27/17 16:40 09/18/17 10:11 Nicorette Gum - BC 2 mg Q2H PRN Administration NICOTINE REPLACEMENT RX Olanzapine 2.5 mg 08/27/17 20:06 09/02/17 08:44 Zyprexa - PO 2.5 mg Q8H PRN Administration ANXIETY Multivit/Folic Acid/Iron 1 tab 08/28/17 10:00 09/18/17 10:09 Vitamins (Sjr) - PO 1 tab DAILY ZABRINA Administration Pseudoephedrine/Triprolidine 1 combo 08/27/17 16:40 08/28/17 10:32 Actifed - PO 1 combo TID PRN Administration NASAL CONGESTION Thiamine HCl 100 mg 08/27/17 22:00 09/17/17 21:51 Vitamin B1 - PO 100 mg HS ZABRINA Administration Trazodone HCl 200 mg 09/13/17 22:00 09/17/17 21:51 Desyrel - PO 200 mg HS ZABRINA Administration Current Side Effect: No Lab tests ordered: No Lab tests reviewed: Yes Provider note:: The patient will complete this program tomorrow 09/20/17.She has met her treatment plan and will continue to address her issues on outpatient basis.Patient reports finding that current medications:Wellbutrin XL 300 mg po am,Buspar 5 mg po tid,Gabapentin 800 mg po tid,TRazodone 200 mg po hs help to cope with mood instability,insomnia,depression,anxiety.Scripts for 30 days provided. Patient identifies areas of difficulties,behaviors which contribute to relapse.Supportive therapy proivided including support system, coping skills utilization to maintain recovery. patient is stable for discharge tomorrow 09/19/17. Total face to face time:: 30 Mental Status Exam - Mental Status Exam Alert and Oriented to: Time, Place, Person Cognitive Function: Grossly Intact Patient Appearance: Well Groomed Mood: Euthymic Affect: Appropriate, Mood Congruent Patient Behavior: Cooperative Speech Pattern: Clear Voice Loudness: Normal Thought Process: Goal Oriented Thought Disorder: Not Present Hallucinations: Denies Suicidal Ideation: Denies Homicidal Ideation: Denies Insight/Judgement: Fair Sleep: Fair Appetite: Good Muscle strength/Tone: Normal Gait/Station: Normal Psychiatric Treatment Plan - Problem List (5) Nicotine dependence Qualifiers: Nicotine product type: cigarettes Substance use status: uncomplicated Qualified Code(s): F17.210 - Nicotine dependence, cigarettes, uncomplicated
[2017-09-18] MEDS: GABAPENTIN 300 MG CAPSULE (FP) PO SCH ×2 (13:08→21:30)
[2017-09-18] MEDS ORDERED: PT OWN MED DRAWER 7, Y5N ONE (13:19)
[2017-09-18] MEDS: THIAMINE HCL 100 MG TABLET (FP) PO SCH (21:30)
[2017-09-18] MEDS: DOCUSATE SODIUM 100 MG CAPSULE (FP) PO SCH (21:31)
[2017-09-18] MEDS: traZODone HCL 100 MG TABLET (FP) PO SCH (21:31)
[2017-09-19] MEDS ORDERED: METHADONE HCL 10 MG TABLET ONE (04:19)
[2017-09-19] MEDS ORDERED: METHADONE HCL 40 MG DISPERSABLE TABLET ONE (04:20)
[2017-09-19] MEDS ORDERED: METHADONE 80 MG, METHADONE 10 MG PO SCH (06:00)
[2017-09-19] MEDS ORDERED: METHADONE HCL 10 MG TABLET PO SCH (06:00)
[2017-09-19] MEDS: IBUPROFEN 600 MG TABLET (FP) PO PRN (06:12)
[2017-09-19] MEDS: busPIRone HCL 5 MG TABLET PO SCH (06:13)
[2017-09-19] MEDS: GABAPENTIN 300 MG CAPSULE (FP) PO SCH (06:13)
[2017-09-19 07:02] VITALS: BP 92/62; PULSE 90; TEMP 98
[2017-09-19] MEDS: BACITRACIN 0.9 GM PACKET TP SCH (09:36)
[2017-09-19] MEDS: PRENATAL VITAMINS W/ FOLIC ACID TABLET (FP) PO SCH (09:36)
== END 2017-09-19 10:07 | disposition home or self-care (01) | DRG 772 ==
LOC: YASAS 11:54 → Y3E 17:43
PROVIDERS: ADMIT Psychiatry & Neurology Psychiatry; ATTEND Psychiatry & Neurology Psychiatry
PROC: HZ42ZZZ Group Counseling for Substance Abuse Treatment, Cognitive-Behavioral (ICD-10-PCS; principal; 2017-08-27)
DX: F10.20 Alcohol dependence, uncomplicated (principal); F11.20 Opioid dependence, uncomplicated; F14.20 Cocaine dependence, uncomplicated; F17.210 Nicotine dependence, cigarettes, uncomplicated; F43.10 Post-traumatic stress disorder, unspecified; F31.9 Bipolar disorder, unspecified; L03.114 Cellulitis of left upper limb; B18.2 Chronic viral hepatitis C; W18.39XA Other fall on same level, initial encounter; Y93.89 Activity, other specified; Y92.238 Other place in hospital as the place of occurrence of the external cause
CPT/HCPCS: 36415; 71020-TC; 80053; 81003; 85027; 86593; 87389; 93005; 93010

== ENCOUNTER 2018-01-26 12:02 | Inpatient (IN) | payer OTHER ==
[2018-01-26 12:15] VITALS: BMI 20.2
--- NOTE | 2018-01-26 13:11 | HP ---
CIWA Score - CIWA Score Nausea/Vomitin Muscle Tremors: 3 Anxiety: 3 Agitation: 3 Paroxysmal Sweats: 2 Orientation: 0-Oriented Tacttile Disturbances: 2-Mild Itch/Numbness/Burn Auditory Disturbances: 1-Very Mild Visual Disturbances: 0-None Headache: 2-Mild CIWA-Ar Total Score: 19 Admission ROS BHS - HPI Chief Complaint: i need help to stop drinking alcohol and cocaine Allergies/Adverse Reactions: Allergies Allergy/AdvReac Type Severity Reaction Status Date / Time No Known Allergies Allergy Verified 01/26/18 15:01 History of Present Illness: this 37 years old female with alcohol and cocaine dependence,seeking detox, withdrawal symptom,last detox 11/[facility] completed mmtp 100 mgs/day,last medicated 01/25/18 lost take home bottle bipolar disorder nicotine dependence syncope hepatitis c longest period 18 months Exam Limitations: No Limitations - Ebola screening Have you traveled outside of the country in the last 21 days: No Have you been sick,other than usual withdrawal symptoms: No - Review of Systems Constitutional: Loss of Appetite, Night Sweats, Changes in sleep, Unintentional Wgt. Loss EENT: reports: Nose Congestion Respiratory: reports: No Symptoms reported Cardiac: reports: Palpitations GI: reports: Diarrhea, Nausea, Vomiting, Abdominal cramping : reports: No Symptoms Reported Musculoskeletal: reports: Back Pain, Muscle Pain Integumentary: reports: Dryness Neuro: reports: Headache, Tremors Endocrine: reports: No Symptoms Reported Hematology: reports: No Symptoms Reported, Other (anemia non compliance) Psychiatric: reports: No Sypmtoms Reported, Judgement Intact, Mood/Affect Appropiate, other (bipolar disorder) Patient History - Patient Medical History Hx Anemia: Yes (In past, uncertain about type.no med) Hx Asthma: No Hx Chronic Obstructive Pulmonary Disease (COPD): No Hx Cancer: No Hx Cardiac Disorders: No Hx Congestive Heart Failure: No Hx Hypertension: No Hx Hypercholesterolemia: No Hx Pacemaker: No HX Cerebrovascular Accident: No Hx Seizures: No Hx Dementia: No Hx Diabetes: No Hx Gastrointestinal Disorders: No Hx Liver Disease: No Hx Genitourinary Disorders: No Hx Sexually Transmitted Disorders: Yes (gonorrhea and syphilis) Hx Renal Disease (ESRD): No Hx Thyroid Disease: No Hx Human Immunodeficiency Virus (HIV): No (Last Tested: approx. 2 weeks ago: NEGATIVE.) Hx Hepatitis C: Yes (Diagnosed @ 2013; No treatment yet.) Hx Depression: Yes Hx Suicide Attempt: No Hx Bipolar Disorder: Yes (On med.) Hx Schizophrenia: No Other Medical History: no suicidal,no homicidal - Patient Surgical History Past Surgical History: Yes Hx Neurologic Surgery: No Hx Cataract Extraction: No Hx Cardiac Surgery: No Hx Lung Surgery: No Hx Breast Surgery: No Hx Breast Biopsy: No Hx Abdominal Surgery: No Hx Appendectomy: No Hx Cholecystectomy: Yes (2003.open) Hx Genitourinary Surgery: No Hx Section: No Hx Orthopedic Surgery: Yes (Left elbow, for infection, 2016.) Hx Hysterectomy: No Other Surgical History: Drainage of Abscess on left Hand: approx. 1 week ago. Tubal Ligation: 2007 Anesthesia Reaction: No - PPD History Previous Implant?: Yes Documented Results: Negative w/o proof Implanted On Prior [facility] Admission?: Yes PPD to be Administered?: Yes - Reproductive History Patient is a Female of Child Bearing Age (11 -55 yrs old): Yes Last Menstrual Period: 05/27/17 Patient : No - Smoking Cessation Smoking history: Current every day smoker Have you smoked in the past 12 months: Yes Aproximately how many cigarettes per day: 8 Cigars Per Day: 0 Hx Chewing Tobacco Use: No Initiated information on smoking cessation: Yes 'Breaking Loose' booklet given: 01/26/18 - Substance & Tx. History Hx Alcohol Use: Yes Hx Substance Use: Yes Substance Use Type: Alcohol, Cocaine, Marijuana Hx Substance Use Treatment: Yes (last 11[facility]) - Substances Abused Alcohol Route: Oral Frequency: Daily Amount used: 2 pints of vodka/4 of 24 ozs of beer Age of first use: 13 Date of Last Use: 01/25/18 Cocaine Route: Smoking Frequency: Daily Amount used: 30$ Age of first use: 17 Date of Last Use: 01/25/18 Marijuana/Hashish Route: Smoking Frequency: 3-6 times per week Amount used: 5$ Age of first use: 13 Date of Last Use: 01/25/18 Family Disease History - Family Disease History Family Disease History: Diabetes: Father (HTN, Hypercholesterolemia.), Heart Disease: Grandparent ([place]), Father, Mother (HTN.), [place]: Grandparent, Other: Sister (, MVA.) Admission Physical Exam [facility] - Vital Signs Vital Signs: Vital Signs - 24 hr 01/26/18 12:12 Temperature 97.4 F L Pulse Rate 69 Respiratory 18 Rate Blood Pressure 120/69 - Physical General Appearance: Yes: Moderate Distress, Tremorous, Irritable, Sweating, Anxious HEENTM: Yes: Normal ENT Inspection, LAURENT, Pharynx Normal, Other (no teeth,no denture) Respiratory: Yes: Lungs Clear, Normal Breath Sounds, No Respiratory Distress Neck: Yes: Within Normal Limits Breast: Yes: Breast Exam Deferred Cardiology: Yes: Within Normal Limits, Regular Rhythm, Regular Rate, S1, S2 Abdominal: Yes: Within Normal Limits, Normal Bowel Sounds, Non Tender, Flat Genitourinary: Yes: Within Normal Limits Back: Yes: Muscle Spasm Musculoskeletal: Yes: Within Normal Limits, Back pain, Muscle Pain Extremities: Yes: Tremors Neurological: Yes: public area attendant II-XII NML intact, Fully Oriented, Alert, Motor Strength 5/5 Integumentary: Yes: Dry Lymphatic: Yes: Within Normal Limits - Diagnostic (1) Alcohol dependence with uncomplicated withdrawal Current Visit: Yes Status: Acute (2) Cocaine dependence, uncomplicated Current Visit: No Status: Chronic (3) Hepatitis C Current Visit: No Status: Chronic (4) Methadone maintenance therapy patient Current Visit: No Status: Chronic (5) Nicotine dependence Current Visit: No Status: Chronic Qualifiers: Nicotine product type: cigarettes Substance use status: uncomplicated Qualified Code(s): F17.210 - Nicotine dependence, cigarettes, uncomplicated (6) Cannabis dependence Current Visit: Yes Status: Acute (7) Weight loss Current Visit: Yes Status: Acute (8) Dehydration Current Visit: Yes Status: Acute (9) No natural teeth Current Visit: Yes Status: Acute Cleared for Admission [facility] - Detox or Rehab [facility] Level of Care: Medically Managed Detox Regimen/Protocol: Librium [facility] Breath Alcohol Content Breath Alcohol Content: 0 Urine Pregancy Test - Result Urine Test Results: Negative- NO Line Present Urine Drug Screen - Results Drug Screen Negative: No Urine Drug Screen Results: THC-Marijuana, ILIA-Cocaine, MTD-Methadone, TCA- Tricyclic Antidepress
[2018-01-26] MEDS ORDERED: MAGNESIUM HYDROX 2400MG/30ML ORAL SUSPENSION 30 ML CUP PO PRN (13:25)
[2018-01-26] MEDS ORDERED: guaiFENesin/D-METHORPHAN HB 10 ML UNIT-DOSE CUPS PO PRN (13:25)
[2018-01-26] MEDS ORDERED: chlordiazePOXIDE HCL 25 MG CAPSULE PO PRN (13:25)
[2018-01-26] MEDS ORDERED: ACETAMINOPHEN 325 MG TABLET (FP) PO PRN (13:25)
[2018-01-26] MEDS ORDERED: IBUPROFEN 400 MG TABLET (FP) PO PRN (13:25)
[2018-01-26] MEDS ORDERED: MENTHOL/PHENOL 1 EACH UD MM PRN (13:25)
[2018-01-26] MEDS ORDERED: MAGNESIUM CITRATE 300 ML BOTTLE PO PRN (13:25)
[2018-01-26] MEDS ORDERED: chlordiazePOXIDE HCL 25 MG CAPSULE PO ONE (13:25)
[2018-01-26] MEDS ORDERED: P-EPHED 60MG/TRIPROLIDI 2.5MG TABLET PO PRN (13:25)
[2018-01-26] MEDS ORDERED: MAG HYDROX/AL HYDROX/SIMETH 30 ML UNIT-DOSE CUP PO PRN (13:25)
[2018-01-26] MEDS ORDERED: LOPERAMIDE HCL 2 MG CAPSULE PO PRN (13:25)
[2018-01-26] MEDS: NICOTINE 21 MG/24 HOURS TOPICAL PATCH TD SCH (16:49)
[2018-01-26] MEDS: chlordiazePOXIDE HCL 25 MG CAPSULE PO SCH ×2 (16:49→22:22)
[2018-01-26 18:41] LABS: URINE APPEARANCE TURBID; URINE BILIRUBIN NEGATIVE (<2.0 mg/dL); URINE BLOOD NEGATIVE (NEGATIVE); URINE COLOR YELLOW; URINE GLUCOSE (UA) NEGATIVE (NEGATIVE); URINE KETONE NEGATIVE (NEGATIVE); URINE NITRITE NEGATIVE (NEGATIVE)
[2018-01-26 18:44] LABS: URINE LEUK ESTERASE 3+ (NEGATIVE); URINE PROTEIN 1+ (NEGATIVE)
[2018-01-26 18:46] LABS: EPI CELLS MODERATE /HPF (FEW); URINE HYALINE CAST 3 /lpf
[2018-01-26] MEDS ORDERED: MELATONIN 5 MG TABLETS PO PRN (22:00)
[2018-01-26] MEDS: THIAMINE HCL 100 MG TABLET (FP) PO SCH (22:22)
[2018-01-27] MEDS: chlordiazePOXIDE HCL 25 MG CAPSULE PO SCH ×4 (06:04→22:31)
[2018-01-27] MEDS ORDERED: METHADONE HCL 10 MG TABLET PO SCH (09:45)
[2018-01-27 09:47] LABS: HEMATOCRIT 35.7 % (32.4-45.2); HEMOGLOBIN 11.6 GM/dL (10.7-15.3); MCH 27.6 pg (25.7-33.7); MCHC 32.5 g/dl (32.0-36.0); MEAN PLT VOLUME 8.8 fl (7.5-11.1); PLATELET COUNT 307 K/MM3 (134-434); RDW 15.2 % (11.6-15.6); WHITE BLOOD COUNT 6.7 K/mm3 (4.0-10.0)
[2018-01-27] MEDS ORDERED: METHADONE 80 MG, METHADONE 20 MG PO ONE (10:00)
[2018-01-27] MEDS ORDERED: METHADONE HCL 10 MG TABLET ONE (10:03)
[2018-01-27] MEDS ORDERED: METHADONE HCL 40 MG DISPERSABLE TABLET ONE (10:03)
[2018-01-27 10:04] LABS: ALBUMIN 3.6 g/dl (3.4-5.0); ANION GAP 2 (8-16); BLOOD UREA NITROGEN 18 mg/dL (7-18); CALCIUM 9.2 mg/dL (8.5-10.1); CHLORIDE 99 mmol/L (98-107); CO2 37 mmol/L (21-32); GLUCOSE,RANDOM 94 mg/dL (74-106); POTASSIUM 3.6 mmol/L (3.5-5.1); SGOT/AST 44 U/L (15-37); SGPT/ALT 36 U/L (12-78); SODIUM 138 mmol/L (136-145)
[2018-01-27] MEDS: PRENATAL VITAMINS W/ FOLIC ACID TABLET (FP) PO SCH (10:06)
[2018-01-27 10:07] LABS: ALK PHOS 134 U/L (45-117); BILIRUBIN,TOTAL 0.4 mg/dL (0.2-1.0); CREATININE 0.8 mg/dL (0.55-1.02); TOT PROT 7.5 g/dl (6.4-8.2)
[2018-01-27] MEDS: NICOTINE 21 MG/24 HOURS TOPICAL PATCH TD SCH (10:07)
--- NOTE | 2018-01-27 10:11 | PN ---
S CIWA - CIWA Score Nausea/Vomitin-Mild Nausea/No Vomiting Muscle Tremors: 4-Moderate,w/Arms Extend Anxiety: 4-Mod. Anxious/Guarded Agitation: 4-Moderately Restless Paroxysmal Sweats: 1-Minimal Palms Moist Orientation: 0-Oriented Tacttile Disturbances: 1-Very Mild Itch/Numbness Auditory Disturbances: 0-None Visual Disturbances: 0-None Headache: 0-None Present CIWA-Ar Total Score: 15 BHS Progress Note (SOAP) Subjective: sweat tremor mild gi distress trouble sleeping at night Objective: 01/27/18 10:10 Vital Signs Temperature 98.1 F 01/27/18 06:00 Pulse Rate 54 L 01/27/18 06:00 Respiratory Rate 16 01/27/18 06:00 Blood Pressure 94/52 01/27/18 06:00 O2 Sat by Pulse Oximetry (%) Laboratory Last Values Urine Color Yellow 01/26/18 18:00 Urine Appearance Turbid 01/26/18 18:00 Urine pH 8.0 (5.0-8.0) 01/26/18 18:00 Ur Specific [place] 1.020 (1.001-1.035) 01/26/18 18:00 Urine Protein 1+ (NEGATIVE) H 01/26/18 18:00 Urine Glucose (UA) Negative (NEGATIVE) 01/26/18 18:00 Urine Ketones Negative (NEGATIVE) 01/26/18 18:00 Urine Blood Negative (NEGATIVE) 01/26/18 18:00 Urine Nitrite Negative (NEGATIVE) 01/26/18 18:00 Urine Bilirubin Negative (<2.0 mg/dL) 01/26/18 18:00 Urine Urobilinogen 2.0 mg/dL (0.2-1.0) H 01/26/18 18:00 Ur Leukocyte Esterase 3+ (NEGATIVE) H 01/26/18 18:00 Urine WBC (Auto) 9 /hpf (3-5) 01/26/18 18:00 Urine RBC (Auto) 4 /hpf (0-3) 01/26/18 18:00 Ur Epithelial Cells Moderate /HPF (FEW) 01/26/18 18:00 Hyaline Casts 3 /lpf 01/26/18 18:00 lab noted repeat ua Assessment: 01/27/18 10:11 withdrawal sx rule out uti Plan: continue detox repeat ua
--- NOTE | 2018-01-27 12:28 | EKG ---
Test Reason : Blood Pressure : / mmHG Vent. Rate : 070 BPM Atrial Rate : 070 BPM P-R Int : 140 ms QRS Dur : 084 ms QT Int : 440 ms P-R-T Axes : 065 073 053 degrees QTc Int : 475 ms NORMAL SINUS RHYTHM NORMAL ECG WHEN COMPARED WITH ECG OF 26-JAN-2018 15:56, NO SIGNIFICANT CHANGE WAS FOUND Confirmed by RICHIE CURRY MD ([id number]) on 01/27/2018 12:28:16 PM Referred By: Abel Singh Confirmed By:RICHIE CURRY MD
--- NOTE | 2018-01-27 12:29 | EKG ---
Test Reason : Blood Pressure : / mmHG Vent. Rate : 057 BPM Atrial Rate : 057 BPM P-R Int : 146 ms QRS Dur : 094 ms QT Int : 506 ms P-R-T Axes : 061 071 061 degrees QTc Int : 492 ms SINUS BRADYCARDIA PROLONGED QT ABNORMAL ECG WHEN COMPARED WITH ECG OF 28-AUG-2017 08:33, NO SIGNIFICANT CHANGE WAS FOUND Confirmed by RICHIE CURRY MD ([id number]) on 01/27/2018 12:29:23 PM Referred By: Abel Singh Confirmed By:RICHIE CURRY MD
[2018-01-27] MEDS ORDERED: GABAPENTIN 400 MG CAPSULE (FP) PO SCH (15:00)
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
[2018-01-27] MEDS: buPROPion HCL 100 MG TABLET PO SCH (15:26)
[2018-01-27] MEDS ORDERED: traZODone HCL 100 MG TABLET (FP) PO SCH (22:00)
[2018-01-27] MEDS ORDERED: OLANZapine 10 MG TABLET PO SCH (22:00)
[2018-01-27] MEDS: THIAMINE HCL 100 MG TABLET (FP) PO SCH (22:31)
[2018-01-27 22:39] VITALS: TEMP 97.5
[2018-01-28] MEDS ORDERED: METHADONE HCL 40 MG DISPERSABLE TABLET ONE (04:39)
[2018-01-28] MEDS ORDERED: METHADONE HCL 10 MG TABLET ONE (04:39)
[2018-01-28] MEDS ORDERED: METHADONE 80 MG, METHADONE 20 MG PO SCH (06:00)
[2018-01-28] MEDS: chlordiazePOXIDE HCL 25 MG CAPSULE PO SCH (06:08)
[2018-01-28 06:55] VITALS: BP 98/54; PULSE 70
[2018-01-28] MEDS: PRENATAL VITAMINS W/ FOLIC ACID TABLET (FP) PO SCH (09:25)
[2018-01-28] MEDS: buPROPion HCL 100 MG TABLET PO SCH (09:25)
--- NOTE | 2018-01-28 10:28 | DS ---
[facility] Detox Discharge Summary Admission Date: 01/26/18 Discharge Date: 01/28/18 - History Present History: Alcohol Dependence Additional Comments: 37 years old female admitted on 01/26/18 for alcohol withdrawal sx patient insists to leave the facility now that she has to filler picker her check patient is alert oriented x 3 no acute distress denies suicidal denies homocidal no self destructive behavior encourage the patient follow up with primary care provider and attend community self help groups patient agrees to consider - Physical Exam Results Vital Signs: Vital Signs Temperature 97.5 F L 01/28/18 06:00 Pulse Rate 70 01/28/18 06:00 Respiratory Rate 18 01/28/18 06:00 Blood Pressure 98/54 01/28/18 06:00 O2 Sat by Pulse Oximetry (%) Pertinent Admission Physical Exam Findings: withdrawal sx Vital Signs Temperature 97.5 F L 01/28/18 06:00 Pulse Rate 70 01/28/18 06:00 Respiratory Rate 18 01/28/18 06:00 Blood Pressure 98/54 01/28/18 06:00 O2 Sat by Pulse Oximetry (%) Laboratory Last Values WBC 6.7 K/mm3 (4.0-10.0) 01/27/18 07:00 RBC 4.20 M/mm3 (3.60-5.2) 01/27/18 07:00 Hgb 11.6 GM/dL (10.7-15.3) 01/27/18 07:00 Hct 35.7 % (32.4-45.2) 01/27/18 07:00 MCV 85.0 fl (80-96) 01/27/18 07:00 MCH 27.6 pg (25.7-33.7) 01/27/18 07:00 MCHC 32.5 g/dl (32.0-36.0) 01/27/18 07:00 RDW 15.2 % (11.6-15.6) 01/27/18 07:00 Plt Count 307 K/MM3 (134-434) D 01/27/18 07:00 MPV 8.8 fl (7.5-11.1) D 01/27/18 07:00 Sodium 138 mmol/L (136-145) 01/27/18 07:00 Potassium 3.6 mmol/L (3.5-5.1) 01/27/18 07:00 Chloride 99 mmol/L (98-107) 01/27/18 07:00 Carbon Dioxide 37 mmol/L (21-32) H 01/27/18 07:00 Anion Gap 2 (8-16) L 01/27/18 07:00 BUN 18 mg/dL (7-18) 01/27/18 07:00 Creatinine 0.8 mg/dL (0.55-1.02) 01/27/18 07:00 Creat Clearance w eGFR > 60 (>60) 01/27/18 07:00 Random Glucose 94 mg/dL (74-106) 01/27/18 07:00 Calcium 9.2 mg/dL (8.5-10.1) 01/27/18 07:00 Total Bilirubin 0.4 mg/dL (0.2-1.0) D 01/27/18 07:00 AST 44 U/L (15-37) H 01/27/18 07:00 ALT 36 U/L (12-78) 01/27/18 07:00 Alkaline Phosphatase 134 U/L (45-117) H 01/27/18 07:00 Total Protein 7.5 g/dl (6.4-8.2) 01/27/18 07:00 Albumin 3.6 g/dl (3.4-5.0) 01/27/18 07:00 Urine Color Yellow 01/26/18 18:00 Urine Appearance Turbid 01/26/18 18:00 Urine pH 8.0 (5.0-8.0) 01/26/18 18:00 Ur Specific [place] 1.020 (1.001-1.035) 01/26/18 18:00 Urine Protein 1+ (NEGATIVE) H 01/26/18 18:00 Urine Glucose (UA) Negative (NEGATIVE) 01/26/18 18:00 Urine Ketones Negative (NEGATIVE) 01/26/18 18:00 Urine Blood Negative (NEGATIVE) 01/26/18 18:00 Urine Nitrite Negative (NEGATIVE) 01/26/18 18:00 Urine Bilirubin Negative (<2.0 mg/dL) 01/26/18 18:00 Urine Urobilinogen 2.0 mg/dL (0.2-1.0) H 01/26/18 18:00 Ur Leukocyte Esterase 3+ (NEGATIVE) H 01/26/18 18:00 Urine WBC (Auto) 9 /hpf (3-5) 01/26/18 18:00 Urine RBC (Auto) 4 /hpf (0-3) 01/26/18 18:00 Ur Epithelial Cells Moderate /HPF (FEW) 01/26/18 18:00 Hyaline Casts 3 /lpf 01/26/18 18:00 RPR Titer Nonreactive (NONREACTIVE) 01/27/18 07:00 HIV 1&2 Antibody Screen Negative 01/27/18 07:00 HIV P24 Antigen Negative 01/27/18 07:00 lab noted - Treatment Hospital Course: Detox Protocol Followed, Responded well Patient has Accepted a Rehab Referral to: as per arranged by the counselor - Medication Discharge Medications: Ambulatory Orders Docusate Sodium [Colace -] 300 mg PO HS #30 capsule 09/18/17 Gabapentin 800 mg PO TID #90 tablet 09/18/17 traZODone HCL [Desyrel -] 200 mg PO HS #60 tablet 09/18/17 Gabapentin [Neurontin -] 800 mg PO Q8H #180 capsule 09/27/17 Bupropion HCl [Wellbutrin -] 150 mg PO BID 01/26/18 Gabapentin [Neurontin] 800 mg PO TID 01/26/18 Methadone [Dolophine -] 20 mg PO DAILY 01/26/18 Methadone [Dolophine -] 80 mg PO DAILY 01/26/18 Olanzapine [ZyPREXA -] 10 mg PO BID 01/26/18 - Diagnosis (1) Alcohol dependence with uncomplicated withdrawal Status: Acute (2) Nicotine dependence Status: Acute Qualifiers: Nicotine product type: cigarettes Substance use status: in withdrawal Qualified Code(s): F17.213 - Nicotine dependence, cigarettes, with withdrawal (3) Hepatitis C Status: Resolved Qualifiers: Viral hepatitis chronicity: carrier Qualified Code(s): B18.2 - Chronic viral hepatitis C (4) Methadone maintenance therapy patient Status: Chronic - AMA Did Patient Leave Against Medical Advice: Yes
[2018-01-28] MEDS ORDERED: chlordiazePOXIDE 5 MG CAPSULE PO SCH (17:00)
[2018-01-29] MEDS ORDERED: chlordiazePOXIDE HCL 10 MG CAPSULE PO SCH (17:00)
== END 2018-01-28 09:52 | disposition left against medical advice (07) | DRG 770 ==
LOC: YASAS 12:02 → Y6N 13:46
PROVIDERS: ADMIT Internal Medicine; ATTEND Internal Medicine
PROC: HZ2ZZZZ Detoxification Services for Substance Abuse Treatment (ICD-10-PCS; principal; 2018-01-26)
DX: F10.230 Alcohol dependence with withdrawal, uncomplicated (principal); F11.20 Opioid dependence, uncomplicated; F14.20 Cocaine dependence, uncomplicated; F12.20 Cannabis dependence, uncomplicated; F17.213 Nicotine dependence, cigarettes, with withdrawal; F43.10 Post-traumatic stress disorder, unspecified; F31.9 Bipolar disorder, unspecified; B18.2 Chronic viral hepatitis C; G47.00 Insomnia, unspecified; E86.0 Dehydration; Z87.42 Personal history of other diseases of the female genital tract; Z87.898 Personal history of other specified conditions
CPT/HCPCS: 36415; 80053; 81003; 81015; 85027; 86593; 87389; 93005; 93010

== ENCOUNTER 2018-02-10 09:04 | Inpatient (IN) | payer OTHER ==
[2018-02-10 10:47] VITALS: BMI 20.2
--- NOTE | 2018-02-10 14:31 | HP ---
CIWA Score - CIWA Score Nausea/Vomitin Muscle Tremors: 3 Anxiety: 3 Agitation: 2 Paroxysmal Sweats: 1-Minimal Palms Moist Orientation: 0-Oriented Tacttile Disturbances: 1-Very Mild Itch/Numbness Auditory Disturbances: 1-Very Mild Visual Disturbances: 0-None Headache: 2-Mild CIWA-Ar Total Score: 16 Admission ROS [facility] - HPI Chief Complaint: i need help to stop drinking alcohol,xanax,cocaine and marijuana Allergies/Adverse Reactions: Allergies Allergy/AdvReac Type Severity Reaction Status Date / Time No Known Allergies Allergy Verified 02/10/18 12:42 History of Present Illness: this 37 years old female with alcohol,cocaine,xanax,marijuana dependence,mmtp 110 mgs/day,last medicated 02/09/18 - Ebola screening Have you traveled outside of the country in the last 21 days: No (N) Have you had contact with anyone from an Ebola affected area: No Have you been sick,other than usual withdrawal symptoms: No Do you have a fever: No - Review of Systems Constitutional: Loss of Appetite, Malaise, Night Sweats, Changes in sleep, Weakness, Unintentional Wgt. Loss EENT: reports: Nose Congestion Respiratory: reports: No Symptoms reported Cardiac: reports: No Symptoms Reported GI: reports: Diarrhea, Nausea, Vomiting, Abdominal cramping : reports: No Symptoms Reported Musculoskeletal: reports: Back Pain, Muscle Pain Integumentary: reports: Dryness Neuro: reports: Headache, Tremors Endocrine: reports: No Symptoms Reported Hematology: reports: No Symptoms Reported Psychiatric: reports: No Sypmtoms Reported, Judgement Intact, Mood/Affect Appropiate, Orientated x3, other (bipolar,ptsd) Patient History - Patient Medical History Hx Anemia: Yes (In past, uncertain about type.no med) Hx Asthma: No Hx Chronic Obstructive Pulmonary Disease (COPD): No Hx Cancer: No Hx Cardiac Disorders: No Hx Congestive Heart Failure: No Hx Hypertension: No Hx Hypercholesterolemia: No Hx Pacemaker: No HX Cerebrovascular Accident: No Hx Seizures: No Hx Dementia: No Hx Diabetes: No Hx Gastrointestinal Disorders: Yes (acid reflux) Hx Liver Disease: No Hx Genitourinary Disorders: No Hx Sexually Transmitted Disorders: No Hx Renal Disease (ESRD): No Hx Thyroid Disease: No Hx Human Immunodeficiency Virus (HIV): No (Last Tested: approx. 2 weeks ago: NEGATIVE.) Hx Hepatitis C: Yes (Diagnosed @ 2013; No treatment yet.) Hx Depression: Yes Hx Suicide Attempt: Yes (pill overdose in 04/2017) Hx Bipolar Disorder: Yes (On med.) Hx Schizophrenia: No Other Medical History: no suicicdal,no homicidal - Patient Surgical History Past Surgical History: Yes Hx Neurologic Surgery: No Hx Cataract Extraction: No Hx Cardiac Surgery: No Hx Lung Surgery: No Hx Breast Surgery: No Hx Breast Biopsy: No Hx Abdominal Surgery: No Hx Appendectomy: No Hx Cholecystectomy: Yes (2002.open) Hx Genitourinary Surgery: No Hx Section: No Hx Orthopedic Surgery: Yes (Left elbow, for infection, 2016.) Hx Hysterectomy: No Other Surgical History: Drainage of Abscess on left Hand: approx. 1 week ago. Tubal Ligation: 2007 Anesthesia Reaction: No - PPD History Previous Implant?: Yes Documented Results: Positive w/o proof PPD to be Administered?: No - Reproductive History Patient is a Female of Child Bearing Age (11 -55 yrs old): Yes Last Menstrual Period: 05/27/17 Patient : No - Smoking Cessation Smoking history: Current every day smoker Have you smoked in the past 12 months: Yes Aproximately how many cigarettes per day: 10 Cigars Per Day: 0 Hx Chewing Tobacco Use: No Initiated information on smoking cessation: Yes 'Breaking Loose' booklet given: 02/10/18 - Substance & Tx. History Hx Alcohol Use: Yes Hx Substance Use: Yes Substance Use Type: Alcohol, Cocaine, Tranquilizers Hx Substance Use Treatment: Yes - Substances Abused Crack Route: Smoking Frequency: Daily Amount used: $50 Age of first use: 17 Date of Last Use: 02/09/18 Alcohol-beer Route: Oral Frequency: Daily Amount used: 1-6 pk. (24 oz.) Age of first use: 13 Date of Last Use: 02/09/18 Xanax Route: Oral Frequency: Daily Amount used: 6 tabs. (1 mg.) Age of first use: 19 Date of Last Use: 02/09/18 Marijuana Route: Smoking Frequency: 1-2 times per week Amount used: $10 Age of first use: 13 Date of Last Use: 02/09/18 Family Disease History - Family Disease History Family Disease History: Diabetes: Father (HTN, Hypercholesterolemia.), Heart Disease: Grandparent ([place]), Father, Mother (HTN.alcohol sober), [place]: Grandparent, Other: Sister (, MVA.) Admission Physical Exam [facility] - Vital Signs Vital Signs: Vital Signs - 24 hr 02/10/18 10:37 Temperature 98.3 F Pulse Rate 73 Respiratory 18 Rate Blood Pressure 126/85 - Physical General Appearance: Yes: Moderate Distress, Tremorous, Irritable, Sweating, Anxious HEENTM: Yes: Normal ENT Inspection, LAURENT, Pharynx Normal Respiratory: Yes: Lungs Clear, Normal Breath Sounds, No Respiratory Distress Neck: Yes: Within Normal Limits, Supple, Trachea in good position Breast: Yes: Breast Exam Deferred Cardiology: Yes: Within Normal Limits, Regular Rhythm, Regular Rate, S1, S2 Abdominal: Yes: Within Normal Limits, Normal Bowel Sounds, Non Tender, Soft Genitourinary: Yes: Within Normal Limits Back: Yes: Within Normal Limits, Normal Inspection, CVA Tenderness, Muscle Spasm Musculoskeletal: Yes: full range of Motion, Back pain, Joint Stiffness, Muscle Pain Extremities: Yes: Within Normal Limits, Normal Range of Motion, Tremors Neurological: Yes: industrial engineering manager II-XII NML intact, Fully Oriented, Alert, Motor Strength 5/5 Integumentary: Yes: Dry Lymphatic: Yes: Within Normal Limits - Diagnostic (1) Alcohol dependence with uncomplicated withdrawal Current Visit: No Status: Acute (2) Cannabis dependence Current Visit: No Status: Acute (3) Cocaine dependence Current Visit: No Status: Acute (4) Dehydration Current Visit: No Status: Acute (5) Insomnia Current Visit: No Status: Acute (6) Nicotine dependence Current Visit: No Status: Acute Qualifiers: Nicotine product type: cigarettes Substance use status: in withdrawal Qualified Code(s): F17.213 - Nicotine dependence, cigarettes, with withdrawal (7) Weight loss Current Visit: No Status: Acute (8) Methadone maintenance therapy patient Current Visit: No Status: Chronic (9) Hepatitis C Current Visit: No Status: Resolved Qualifiers: Viral hepatitis chronicity: carrier Qualified Code(s): B18.2 - Chronic viral hepatitis C Cleared for Admission [facility] - Detox or Rehab [facility] Level of Care: Medically Managed Detox Regimen/Protocol: Valium S Breath Alcohol Content Breath Alcohol Content: 0 Urine Pregancy Test - Result Urine Test Results: Negative- NO Line Present Urine Drug Screen - Results Drug Screen Negative: No Urine Drug Screen Results: THC-Marijuana, ILIA-Cocaine, BZO-Benzodiazepines, MTD- Methadone
[2018-02-10] MEDS ORDERED: MAGNESIUM HYDROX 2400MG/30ML ORAL SUSPENSION 30 ML CUP PO PRN (14:46)
[2018-02-10] MEDS ORDERED: NICOTINE POLACRILEX 2 MG GUM BC PRN (14:46)
[2018-02-10] MEDS ORDERED: ACETAMINOPHEN 325 MG TABLET (FP) PO PRN (14:46)
[2018-02-10] MEDS ORDERED: MENTHOL/PHENOL 1 EACH UD MM PRN (14:46)
[2018-02-10] MEDS ORDERED: guaiFENesin/D-METHORPHAN HB 10 ML UNIT-DOSE CUPS PO PRN (14:46)
[2018-02-10] MEDS ORDERED: MAG HYDROX/AL HYDROX/SIMETH 30 ML UNIT-DOSE CUP PO PRN (14:46)
[2018-02-10] MEDS ORDERED: LOPERAMIDE HCL 2 MG CAPSULE PO PRN (14:46)
[2018-02-10] MEDS ORDERED: hydrOXYzine PAMOATE 25 MG CAPSULE (FP) PO PRN (14:46)
[2018-02-10] MEDS ORDERED: MAGNESIUM CITRATE 300 ML BOTTLE PO PRN (14:46)
[2018-02-10] MEDS ORDERED: P-EPHED 60MG/TRIPROLIDI 2.5MG TABLET PO PRN (14:46)
[2018-02-10] MEDS ORDERED: diazePAM 5 MG TABLET PO ONE (15:00)
[2018-02-10] MEDS ORDERED: METHADONE HCL 10 MG TABLET PO SCH (15:00)
[2018-02-10] MEDS ORDERED: METHADONE 80 MG, METHADONE 30 MG PO ONE (15:15)
[2018-02-10] MEDS ORDERED: METHADONE HCL 40 MG DISPERSABLE TABLET ONE (15:33)
[2018-02-10] MEDS ORDERED: METHADONE HCL 10 MG TABLET ONE (15:34)
[2018-02-10] MEDS: NICOTINE 21 MG/24 HOURS TOPICAL PATCH TD SCH (15:43)
[2018-02-10 17:40] LABS: URINE APPEARANCE TURBID; URINE BILIRUBIN NEGATIVE (<2.0 mg/dL); URINE COLOR YELLOW; URINE GLUCOSE (UA) NEGATIVE (NEGATIVE); URINE KETONE NEGATIVE (NEGATIVE); URINE LEUK ESTERASE TRACE (NEGATIVE); URINE NITRITE NEGATIVE (NEGATIVE); URINE PROTEIN 1+ (NEGATIVE)
[2018-02-10 17:55] LABS: EPI CELLS RARE /HPF (FEW); URINE MUCUS FEW; YEAST MODERATE
[2018-02-10] MEDS: diazePAM 5 MG TABLET PO PRN (19:52)
[2018-02-10] MEDS ORDERED: MELATONIN 5 MG TABLETS PO PRN (22:00)
[2018-02-10] MEDS: diazePAM 5 MG TABLET PO SCH (22:27)
[2018-02-10] MEDS: THIAMINE HCL 100 MG TABLET (FP) PO SCH (22:27)
[2018-02-11] MEDS ORDERED: METHADONE HCL 40 MG DISPERSABLE TABLET ONE (04:43)
[2018-02-11] MEDS ORDERED: METHADONE HCL 10 MG TABLET ONE (04:43)
[2018-02-11] MEDS: diazePAM 5 MG TABLET PO SCH ×3 (05:51→22:16)
[2018-02-11] MEDS: METHADONE 80 MG, METHADONE 30 MG PO SCH (05:51)
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
[2018-02-11] MEDS ORDERED: buPROPion HCL 100 MG TABLET PO SCH (10:15)
[2018-02-11 10:18] LABS: HEMATOCRIT 30.8 % (32.4-45.2); MCH 27.7 pg (25.7-33.7); MCHC 32.5 g/dl (32.0-36.0); MEAN CELL VOLUME 85.1 fl (80-96); MEAN PLT VOLUME 7.6 fl (7.5-11.1); PLATELET COUNT 354 K/MM3 (134-434); RBC 3.62 M/mm3 (3.60-5.2); RDW 16.3 % (11.6-15.6); WHITE BLOOD COUNT 7.5 K/mm3 (4.0-10.0)
[2018-02-11 10:25] LABS: CHLORIDE 106 mmol/L (98-107); POTASSIUM 4.2 mmol/L (3.5-5.1); SODIUM 143 mmol/L (136-145)
[2018-02-11] MEDS: PRENATAL VITAMINS W/ FOLIC ACID TABLET (FP) PO SCH (10:27)
[2018-02-11] MEDS: diazePAM 5 MG TABLET PO PRN ×2 (10:27→17:46)
[2018-02-11] MEDS: NICOTINE 21 MG/24 HOURS TOPICAL PATCH TD SCH (10:28)
[2018-02-11 10:43] LABS: ALBUMIN 2.9 g/dl (3.4-5.0); ALK PHOS 124 U/L (45-117); ANION GAP 4 (8-16); BILIRUBIN,TOTAL 0.3 mg/dL (0.2-1.0); BLOOD UREA NITROGEN 11 mg/dL (7-18); CALCIUM 8.3 mg/dL (8.5-10.1); CO2 33 mmol/L (21-32); CREATININE 0.7 mg/dL (0.55-1.02); GLUCOSE,RANDOM 97 mg/dL (74-106); SGOT/AST 34 U/L (15-37); SGPT/ALT 32 U/L (12-78); TOT PROT 6.3 g/dl (6.4-8.2)
[2018-02-11] MEDS: IBUPROFEN 400 MG TABLET (FP) PO PRN ×2 (11:33→22:17)
--- NOTE | 2018-02-11 12:01 | EKG ---
Test Reason : Blood Pressure : / mmHG Vent. Rate : 055 BPM Atrial Rate : 055 BPM P-R Int : 092 ms QRS Dur : 092 ms QT Int : 448 ms P-R-T Axes : 024 073 058 degrees QTc Int : 428 ms SINUS BRADYCARDIA WITH SHORT HI OTHERWISE NORMAL ECG WHEN COMPARED WITH ECG OF 27-JAN-2018 08:28, QT HAS SHORTENED Confirmed by MD JAYCEE, MILES ([id number]) on 02/11/2018 12:01:18 PM Referred By: Confirmed By:MILES CHAMPION MD
--- NOTE | 2018-02-11 12:26 | PN ---
[facility] CIWA - CIWA Score Nausea/Vomitin-Mild Nausea/No Vomiting Muscle Tremors: 4-Moderate,w/Arms Extend Anxiety: 4-Mod. Anxious/Guarded Agitation: 4-Moderately Restless Paroxysmal Sweats: 1-Minimal Palms Moist Orientation: 0-Oriented Tacttile Disturbances: 0-None Auditory Disturbances: 0-None Visual Disturbances: 0-None Headache: 0-None Present CIWA-Ar Total Score: 14 S Progress Note (SOAP) Subjective: sweat tremor trouble sleep at night anxiety restlessness c/o left foot swell x 3-4 weeks that she trip on her left foot Objective: 02/11/18 12:26 Vital Signs Temperature 97.9 F 02/11/18 09:06 Pulse Rate 64 02/11/18 09:06 Respiratory Rate 16 02/11/18 09:06 Blood Pressure 104/70 02/11/18 09:06 O2 Sat by Pulse Oximetry (%) Laboratory Last Values WBC 7.5 K/mm3 (4.0-10.0) 02/11/18 07:00 RBC 3.62 M/mm3 (3.60-5.2) 02/11/18 07:00 Hgb 10.0 GM/dL (10.7-15.3) L D 02/11/18 07:00 Hct 30.8 % (32.4-45.2) L 02/11/18 07:00 MCV 85.1 fl (80-96) 02/11/18 07:00 MCH 27.7 pg (25.7-33.7) 02/11/18 07:00 MCHC 32.5 g/dl (32.0-36.0) 02/11/18 07:00 RDW 16.3 % (11.6-15.6) H 02/11/18 07:00 Plt Count 354 K/MM3 (134-434) 02/11/18 07:00 MPV 7.6 fl (7.5-11.1) D 02/11/18 07:00 Sodium 143 mmol/L (136-145) 02/11/18 07:00 Potassium 4.2 mmol/L (3.5-5.1) 02/11/18 07:00 Chloride 106 mmol/L (98-107) 02/11/18 07:00 Carbon Dioxide 33 mmol/L (21-32) H 02/11/18 07:00 Anion Gap 4 (8-16) L 02/11/18 07:00 BUN 11 mg/dL (7-18) 02/11/18 07:00 Creatinine 0.7 mg/dL (0.55-1.02) 02/11/18 07:00 Creat Clearance w eGFR > 60 (>60) 02/11/18 07:00 Random Glucose 97 mg/dL (74-106) 02/11/18 07:00 Calcium 8.3 mg/dL (8.5-10.1) L 02/11/18 07:00 Total Bilirubin 0.3 mg/dL (0.2-1.0) D 02/11/18 07:00 AST 34 U/L (15-37) 02/11/18 07:00 ALT 32 U/L (12-78) 02/11/18 07:00 Alkaline Phosphatase 124 U/L (45-117) H 02/11/18 07:00 Total Protein 6.3 g/dl (6.4-8.2) L 02/11/18 07:00 Albumin 2.9 g/dl (3.4-5.0) L 02/11/18 07:00 Urine Color Yellow 02/10/18 14:00 Urine Appearance Turbid 02/10/18 14:00 Urine pH 7.0 (5.0-8.0) 02/10/18 14:00 Ur Specific [place] 1.019 (1.001-1.035) 02/10/18 14:00 Urine Protein 1+ (NEGATIVE) H 02/10/18 14:00 Urine Glucose (UA) Negative (NEGATIVE) 02/10/18 14:00 Urine Ketones Negative (NEGATIVE) 02/10/18 14:00 Urine Blood Negative (NEGATIVE) 02/10/18 14:00 Urine Nitrite Negative (NEGATIVE) 02/10/18 14:00 Urine Bilirubin Negative (<2.0 mg/dL) 02/10/18 14:00 Urine Urobilinogen 2.0 mg/dL (0.2-1.0) H 02/10/18 14:00 Ur Leukocyte Esterase Trace (NEGATIVE) 02/10/18 14:00 Urine WBC (Auto) 31 /hpf (3-5) 02/10/18 14:00 Urine RBC (Auto) 10 /hpf (0-3) 02/10/18 14:00 Ur Epithelial Cells Rare /HPF (FEW) 02/10/18 14:00 Urine Mucus Few 02/10/18 14:00 Urine Yeast Moderate 02/10/18 14:00 RPR Titer Nonreactive (NONREACTIVE) 02/11/18 07:00 lab noted 02/11/18 12:29 repeat ua 02/11/18 12:30 left foot swell +1 +2 pulses skin intact no bruises noted no redness able to move great toe second and third toe limited mobility Assessment: 02/11/18 12:32 withdrawal sx rule out left fracture Plan: continue detox x ray of the left foot repeat ua
[2018-02-11] MEDS: GABAPENTIN 300 MG CAPSULE (FP) PO SCH ×2 (14:20→22:16)
[2018-02-11] MEDS: THIAMINE HCL 100 MG TABLET (FP) PO SCH (22:16)
[2018-02-11] MEDS: QUEtiapine FUMARATE 100 MG TABLET (FP) PO SCH (22:16)
[2018-02-12] MEDS ORDERED: METHADONE HCL 10 MG TABLET ONE (04:25)
[2018-02-12] MEDS ORDERED: METHADONE HCL 40 MG DISPERSABLE TABLET ONE (04:25)
[2018-02-12] MEDS: diazePAM 5 MG TABLET PO PRN ×3 (05:39→17:41)
[2018-02-12] MEDS: METHADONE 80 MG, METHADONE 30 MG PO SCH (05:43)
[2018-02-12] MEDS: GABAPENTIN 300 MG CAPSULE (FP) PO SCH ×3 (05:44→22:38)
[2018-02-12 10:10] LABS: URINE APPEARANCE CLOUDY; URINE COLOR AMBER; URINE GLUCOSE (UA) NEGATIVE (NEGATIVE); URINE KETONE NEGATIVE (NEGATIVE); URINE NITRITE NEGATIVE (NEGATIVE); URINE UROBILINOGEN NEGATIVE mg/dL (0.2-1.0)
[2018-02-12 10:12] LABS: URINE LEUK ESTERASE 1+ (NEGATIVE); URINE PROTEIN 2+ (NEGATIVE)
[2018-02-12 10:31] LABS: EPI CELLS MODERATE /HPF (FEW); TRIPLE PHOSPHATE CRYSTAL RARE /hpf (NONE SEEN); URINE BACTERIA MODERATE /hpf (NONE SEEN); URINE MUCUS FEW
[2018-02-12] MEDS: PRENATAL VITAMINS W/ FOLIC ACID TABLET (FP) PO SCH (10:47)
[2018-02-12] MEDS: diazePAM 5 MG TABLET PO SCH ×2 (10:48→22:38)
[2018-02-12] MEDS: IBUPROFEN 400 MG TABLET (FP) PO PRN (10:50)
[2018-02-12] MEDS: NICOTINE 21 MG/24 HOURS TOPICAL PATCH TD SCH (10:50)
--- NOTE | 2018-02-12 12:33 | PN ---
[facility] CIWA - CIWA Score Nausea/Vomitin-Mild Nausea/No Vomiting Muscle Tremors: 3 Anxiety: 3 Agitation: 3 Paroxysmal Sweats: 1-Minimal Palms Moist Orientation: 0-Oriented Tacttile Disturbances: 0-None Auditory Disturbances: 0-None Visual Disturbances: 0-None Headache: 0-None Present CIWA-Ar Total Score: 11 S Progress Note (SOAP) Subjective: sweat tremor anxiety restlessness trouble sitting still trouble sleep at night Objective: 02/12/18 12:35 Vital Signs Temperature 98.1 F 02/12/18 10:28 Pulse Rate 65 02/12/18 10:28 Respiratory Rate 16 02/12/18 10:28 Blood Pressure 94/64 02/12/18 10:28 O2 Sat by Pulse Oximetry (%) Laboratory Last Values WBC 7.5 K/mm3 (4.0-10.0) 02/11/18 07:00 RBC 3.62 M/mm3 (3.60-5.2) 02/11/18 07:00 Hgb 10.0 GM/dL (10.7-15.3) L D 02/11/18 07:00 Hct 30.8 % (32.4-45.2) L 02/11/18 07:00 MCV 85.1 fl (80-96) 02/11/18 07:00 MCH 27.7 pg (25.7-33.7) 02/11/18 07:00 MCHC 32.5 g/dl (32.0-36.0) 02/11/18 07:00 RDW 16.3 % (11.6-15.6) H 02/11/18 07:00 Plt Count 354 K/MM3 (134-434) 02/11/18 07:00 MPV 7.6 fl (7.5-11.1) D 02/11/18 07:00 Sodium 143 mmol/L (136-145) 02/11/18 07:00 Potassium 4.2 mmol/L (3.5-5.1) 02/11/18 07:00 Chloride 106 mmol/L (98-107) 02/11/18 07:00 Carbon Dioxide 33 mmol/L (21-32) H 02/11/18 07:00 Anion Gap 4 (8-16) L 02/11/18 07:00 BUN 11 mg/dL (7-18) 02/11/18 07:00 Creatinine 0.7 mg/dL (0.55-1.02) 02/11/18 07:00 Creat Clearance w eGFR > 60 (>60) 02/11/18 07:00 Random Glucose 97 mg/dL (74-106) 02/11/18 07:00 Calcium 8.3 mg/dL (8.5-10.1) L 02/11/18 07:00 Total Bilirubin 0.3 mg/dL (0.2-1.0) D 02/11/18 07:00 AST 34 U/L (15-37) 02/11/18 07:00 ALT 32 U/L (12-78) 02/11/18 07:00 Alkaline Phosphatase 124 U/L (45-117) H 02/11/18 07:00 Total Protein 6.3 g/dl (6.4-8.2) L 02/11/18 07:00 Albumin 2.9 g/dl (3.4-5.0) L 02/11/18 07:00 Urine Color Kayla 02/11/18 15:00 Urine Appearance Cloudy 02/11/18 15:00 Urine pH 7.0 (5.0-8.0) 02/11/18 15:00 Ur Specific [place] 1.025 (1.001-1.035) 02/11/18 15:00 Urine Protein 2+ (NEGATIVE) H 02/11/18 15:00 Urine Glucose (UA) Negative (NEGATIVE) 02/11/18 15:00 Urine Ketones Negative (NEGATIVE) 02/11/18 15:00 Urine Blood Negative (NEGATIVE) 02/11/18 15:00 Urine Nitrite Negative (NEGATIVE) 02/11/18 15:00 Urine Bilirubin 2.0 (<2.0 mg/dL) 02/11/18 15:00 Urine Urobilinogen Negative mg/dL (0.2-1.0) 02/11/18 15:00 Ur Leukocyte Esterase 1+ (NEGATIVE) H 02/11/18 15:00 Urine WBC (Auto) 8 /hpf (3-5) 02/11/18 15:00 Urine RBC (Auto) 5 /hpf (0-3) 02/11/18 15:00 Ur Epithelial Cells Moderate /HPF (FEW) 02/11/18 15:00 Triple Phos Crystals Rare /hpf (NONE SEEN) 02/11/18 15:00 Urine Bacteria Moderate /hpf (NONE SEEN) 02/11/18 15:00 Urine Mucus Few 02/11/18 15:00 Urine Yeast Moderate 02/10/18 14:00 RPR Titer Nonreactive (NONREACTIVE) 02/11/18 07:00 lab noted 02/12/18 12:38 uti Assessment: 02/12/18 12:38 withdrawal sx uti Plan: continue detox bactrim ds bid
[2018-02-12] MEDS: SULFAMETHOXAZOLE/TRIMETHOPRIM 800MG/160MG D.S. TABLET PO SCH ×2 (13:29→22:38)
[2018-02-12] MEDS ORDERED: buPROPion HCL 100 MG TABLET PO SCH (17:00)
[2018-02-12] MEDS: QUEtiapine FUMARATE 100 MG TABLET (FP) PO SCH (22:38)
[2018-02-12] MEDS: THIAMINE HCL 100 MG TABLET (FP) PO SCH (22:38)
[2018-02-13] MEDS ORDERED: METHADONE HCL 40 MG DISPERSABLE TABLET ONE (04:31)
[2018-02-13] MEDS ORDERED: METHADONE HCL 10 MG TABLET ONE (04:31)
[2018-02-13] MEDS: GABAPENTIN 300 MG CAPSULE (FP) PO SCH ×3 (05:49→22:25)
[2018-02-13] MEDS: METHADONE 80 MG, METHADONE 30 MG PO SCH (05:49)
[2018-02-13] MEDS: diazePAM 5 MG TABLET PO PRN (06:33)
--- NOTE | 2018-02-13 12:46 | PN ---
[facility] Progress Note (SOAP) Subjective: feeling better less sweat no tremor sleep better at night Objective: 02/13/18 12:44 Vital Signs Temperature 97.9 F 02/13/18 10:29 Pulse Rate 103 H 02/13/18 10:29 Respiratory Rate 18 02/13/18 10:29 Blood Pressure 95/58 02/13/18 10:29 O2 Sat by Pulse Oximetry (%) Laboratory Last Values WBC 7.5 K/mm3 (4.0-10.0) 02/11/18 07:00 RBC 3.62 M/mm3 (3.60-5.2) 02/11/18 07:00 Hgb 10.0 GM/dL (10.7-15.3) L D 02/11/18 07:00 Hct 30.8 % (32.4-45.2) L 02/11/18 07:00 MCV 85.1 fl (80-96) 02/11/18 07:00 MCH 27.7 pg (25.7-33.7) 02/11/18 07:00 MCHC 32.5 g/dl (32.0-36.0) 02/11/18 07:00 RDW 16.3 % (11.6-15.6) H 02/11/18 07:00 Plt Count 354 K/MM3 (134-434) 02/11/18 07:00 MPV 7.6 fl (7.5-11.1) D 02/11/18 07:00 Sodium 143 mmol/L (136-145) 02/11/18 07:00 Potassium 4.2 mmol/L (3.5-5.1) 02/11/18 07:00 Chloride 106 mmol/L (98-107) 02/11/18 07:00 Carbon Dioxide 33 mmol/L (21-32) H 02/11/18 07:00 Anion Gap 4 (8-16) L 02/11/18 07:00 BUN 11 mg/dL (7-18) 02/11/18 07:00 Creatinine 0.7 mg/dL (0.55-1.02) 02/11/18 07:00 Creat Clearance w eGFR > 60 (>60) 02/11/18 07:00 Random Glucose 97 mg/dL (74-106) 02/11/18 07:00 Calcium 8.3 mg/dL (8.5-10.1) L 02/11/18 07:00 Total Bilirubin 0.3 mg/dL (0.2-1.0) D 02/11/18 07:00 AST 34 U/L (15-37) 02/11/18 07:00 ALT 32 U/L (12-78) 02/11/18 07:00 Alkaline Phosphatase 124 U/L (45-117) H 02/11/18 07:00 Total Protein 6.3 g/dl (6.4-8.2) L 02/11/18 07:00 Albumin 2.9 g/dl (3.4-5.0) L 02/11/18 07:00 Urine Color [place] 02/11/18 15:00 Urine Appearance Cloudy 02/11/18 15:00 Urine pH 7.0 (5.0-8.0) 02/11/18 15:00 Ur Specific [place] 1.025 (1.001-1.035) 02/11/18 15:00 Urine Protein 2+ (NEGATIVE) H 02/11/18 15:00 Urine Glucose (UA) Negative (NEGATIVE) 02/11/18 15:00 Urine Ketones Negative (NEGATIVE) 02/11/18 15:00 Urine Blood Negative (NEGATIVE) 02/11/18 15:00 Urine Nitrite Negative (NEGATIVE) 02/11/18 15:00 Urine Bilirubin 2.0 (<2.0 mg/dL) 02/11/18 15:00 Urine Urobilinogen Negative mg/dL (0.2-1.0) 02/11/18 15:00 Ur Leukocyte Esterase 1+ (NEGATIVE) H 02/11/18 15:00 Urine WBC (Auto) 8 /hpf (3-5) 02/11/18 15:00 Urine RBC (Auto) 5 /hpf (0-3) 02/11/18 15:00 Ur Epithelial Cells Moderate /HPF (FEW) 02/11/18 15:00 Triple Phos Crystals Rare /hpf (NONE SEEN) 02/11/18 15:00 Urine Bacteria Moderate /hpf (NONE SEEN) 02/11/18 15:00 Urine Mucus Few 02/11/18 15:00 Urine Yeast Moderate 02/10/18 14:00 RPR Titer Nonreactive (NONREACTIVE) 02/11/18 07:00 lab noted increase oral fluid personal hygiene Assessment: 02/13/18 12:45 mild withdrawal sx Plan: medically supervised detox
[2018-02-13] MEDS: SULFAMETHOXAZOLE/TRIMETHOPRIM 800MG/160MG D.S. TABLET PO SCH ×2 (13:31→22:25)
[2018-02-13] MEDS: PRENATAL VITAMINS W/ FOLIC ACID TABLET (FP) PO SCH (13:31)
[2018-02-13] MEDS: diazePAM 5 MG TABLET PO SCH ×2 (13:33→22:25)
[2018-02-13] MEDS: NICOTINE 21 MG/24 HOURS TOPICAL PATCH TD SCH (13:33)
[2018-02-13] MEDS ORDERED: hydrOXYzine PAMOATE 50 MG CAPSULE (FP) PO PRN (17:07)
--- NOTE | 2018-02-13 17:13 | PN ---
[facility] Progress Note Note: Patient c/o of feeling anxious and requested additional dose of valium. As per patient the Vistaril has not been helping with her symptoms. Patient was very belligerent and irate during my assessment. Patient alleges that she has not had spoken a counselor regarding her after care. [employer] Supervisor spoke with counselor Armida and endorse she has spoken to patient several times today. Vital Signs Temperature 98.1 F 02/13/18 15:03 Pulse Rate 73 02/13/18 15:03 Respiratory Rate 18 02/13/18 15:03 Blood Pressure 96/61 02/13/18 15:03 O2 Sat by Pulse Oximetry (%) Patient currently on vitaril 25 mg, dose adjusted to 50 mg q4h PRN increase fluids continue to monitor
[2018-02-13] MEDS: THIAMINE HCL 100 MG TABLET (FP) PO SCH (22:25)
[2018-02-13] MEDS: QUEtiapine FUMARATE 100 MG TABLET (FP) PO SCH (22:25)
[2018-02-14] MEDS ORDERED: METHADONE HCL 40 MG DISPERSABLE TABLET ONE (05:34)
[2018-02-14] MEDS ORDERED: METHADONE HCL 10 MG TABLET ONE (05:35)
[2018-02-14] MEDS: GABAPENTIN 300 MG CAPSULE (FP) PO SCH (06:02)
[2018-02-14] MEDS: METHADONE 80 MG, METHADONE 30 MG PO SCH (06:02)
--- NOTE | 2018-02-14 09:12 | DS ---
[facility] Detox Discharge Summary Admission Date: 02/10/18 Discharge Date: 02/14/18 - History Present History: Alcohol Dependence Additional Comments: 37 years old female admitted 02/10/18 for alcohol withdrawal sx completed alcohol detox regimen tolerated well denies alcohol withdrawal sx alert oriented x 3 no acute distress speech coherent wants to go to [facility] rehab facility for methadone maintenance and addiction brief motivational intervention x 5" patient determines to maintain sober - Physical Exam Results Vital Signs: Vital Signs Temperature 97.9 F 02/14/18 06:22 Pulse Rate 76 02/14/18 06:22 Respiratory Rate 16 02/14/18 06:22 Blood Pressure 100/67 02/14/18 06:22 O2 Sat by Pulse Oximetry (%) Pertinent Admission Physical Exam Findings: withdrawal sx Vital Signs Temperature 97.9 F 02/14/18 06:22 Pulse Rate 76 02/14/18 06:22 Respiratory Rate 16 02/14/18 06:22 Blood Pressure 100/67 02/14/18 06:22 O2 Sat by Pulse Oximetry (%) Laboratory Last Values WBC 7.5 K/mm3 (4.0-10.0) 02/11/18 07:00 RBC 3.62 M/mm3 (3.60-5.2) 02/11/18 07:00 Hgb 10.0 GM/dL (10.7-15.3) L D 02/11/18 07:00 Hct 30.8 % (32.4-45.2) L 02/11/18 07:00 MCV 85.1 fl (80-96) 02/11/18 07:00 MCH 27.7 pg (25.7-33.7) 02/11/18 07:00 MCHC 32.5 g/dl (32.0-36.0) 02/11/18 07:00 RDW 16.3 % (11.6-15.6) H 02/11/18 07:00 Plt Count 354 K/MM3 (134-434) 02/11/18 07:00 MPV 7.6 fl (7.5-11.1) D 02/11/18 07:00 Sodium 143 mmol/L (136-145) 02/11/18 07:00 Potassium 4.2 mmol/L (3.5-5.1) 02/11/18 07:00 Chloride 106 mmol/L (98-107) 02/11/18 07:00 Carbon Dioxide 33 mmol/L (21-32) H 02/11/18 07:00 Anion Gap 4 (8-16) L 02/11/18 07:00 BUN 11 mg/dL (7-18) 02/11/18 07:00 Creatinine 0.7 mg/dL (0.55-1.02) 02/11/18 07:00 Creat Clearance w eGFR > 60 (>60) 02/11/18 07:00 Random Glucose 97 mg/dL (74-106) 02/11/18 07:00 Calcium 8.3 mg/dL (8.5-10.1) L 02/11/18 07:00 Total Bilirubin 0.3 mg/dL (0.2-1.0) D 02/11/18 07:00 AST 34 U/L (15-37) 02/11/18 07:00 ALT 32 U/L (12-78) 02/11/18 07:00 Alkaline Phosphatase 124 U/L (45-117) H 02/11/18 07:00 Total Protein 6.3 g/dl (6.4-8.2) L 02/11/18 07:00 Albumin 2.9 g/dl (3.4-5.0) L 02/11/18 07:00 Urine Color Kayla 02/11/18 15:00 Urine Appearance Cloudy 02/11/18 15:00 Urine pH 7.0 (5.0-8.0) 02/11/18 15:00 Ur Specific [place] 1.025 (1.001-1.035) 02/11/18 15:00 Urine Protein 2+ (NEGATIVE) H 02/11/18 15:00 Urine Glucose (UA) Negative (NEGATIVE) 02/11/18 15:00 Urine Ketones Negative (NEGATIVE) 02/11/18 15:00 Urine Blood Negative (NEGATIVE) 02/11/18 15:00 Urine Nitrite Negative (NEGATIVE) 02/11/18 15:00 Urine Bilirubin 2.0 (<2.0 mg/dL) 02/11/18 15:00 Urine Urobilinogen Negative mg/dL (0.2-1.0) 02/11/18 15:00 Ur Leukocyte Esterase 1+ (NEGATIVE) H 02/11/18 15:00 Urine WBC (Auto) 8 /hpf (3-5) 02/11/18 15:00 Urine RBC (Auto) 5 /hpf (0-3) 02/11/18 15:00 Ur Epithelial Cells Moderate /HPF (FEW) 02/11/18 15:00 Triple Phos Crystals Rare /hpf (NONE SEEN) 02/11/18 15:00 Urine Bacteria Moderate /hpf (NONE SEEN) 02/11/18 15:00 Urine Mucus Few 02/11/18 15:00 Urine Yeast Moderate 02/10/18 14:00 RPR Titer Nonreactive (NONREACTIVE) 02/11/18 07:00 lab noted - Treatment Hospital Course: Detox Protocol Followed, Detoxed Safely, Responded well, Discharged Condition Good, Rehab Referral Accepted Patient has Accepted a Rehab Referral to: [facility] - Medication Discharge Medications: Ambulatory Orders traZODone HCL [Desyrel -] 200 mg PO HS #60 tablet 09/18/17 Gabapentin [Neurontin -] 800 mg PO Q8H #180 capsule 09/27/17 Bupropion HCl [Wellbutrin -] 150 mg PO BID 01/26/18 Methadone [Dolophine -] 110 mg PO DAILY 01/26/18 Olanzapine [ZyPREXA -] 10 mg PO BID 01/26/18 Quetiapine Fumarate [Seroquel] 100 mg PO HS 02/11/18 - Diagnosis (1) Alcohol dependence with uncomplicated withdrawal Current Visit: Yes Status: Acute (2) Weight loss Current Visit: Yes Status: Acute (3) Methadone maintenance therapy patient Current Visit: Yes Status: Chronic (4) Hepatitis C Current Visit: Yes Status: Resolved Qualifiers: Viral hepatitis chronicity: carrier Qualified Code(s): B18.2 - Chronic viral hepatitis C - AMA Did Patient Leave Against Medical Advice: No
[2018-02-14 09:55] VITALS: BP 104/64; PULSE 97; TEMP 98.1
[2018-02-14] MEDS ORDERED: diazePAM 5 MG TABLET PO SCH (10:00)
[2018-02-14] MEDS: PRENATAL VITAMINS W/ FOLIC ACID TABLET (FP) PO SCH (10:18)
[2018-02-14] MEDS: SULFAMETHOXAZOLE/TRIMETHOPRIM 800MG/160MG D.S. TABLET PO SCH (10:18)
[2018-02-14] MEDS: NICOTINE 21 MG/24 HOURS TOPICAL PATCH TD SCH (10:18)
== END 2018-02-14 11:24 | disposition other institution (70) | DRG 773 ==
LOC: YASAS 09:04 → Y6N 13:20
PROVIDERS: ADMIT Surgery; ATTEND Surgery
PROC: HZ2ZZZZ Detoxification Services for Substance Abuse Treatment (ICD-10-PCS; principal; 2018-02-10)
DX: F11.20 Opioid dependence, uncomplicated (principal); F13.20 Sedative, hypnotic or anxiolytic dependence, uncomplicated; F10.230 Alcohol dependence with withdrawal, uncomplicated; F14.20 Cocaine dependence, uncomplicated; F12.20 Cannabis dependence, uncomplicated; F17.210 Nicotine dependence, cigarettes, uncomplicated; F43.10 Post-traumatic stress disorder, unspecified; F31.9 Bipolar disorder, unspecified; G47.00 Insomnia, unspecified; E86.0 Dehydration; R63.4 Abnormal weight loss; Z68.20 Body mass index [BMI] 20.0-20.9, adult; Z86.2 Personal history of diseases of the blood and blood-forming organs and certain disorders involving the immune mechanism; Z91.5 Personal history of self-harm
CPT/HCPCS: 36415; 73630-TC-LT; 80053; 81003; 81015; 85027; 86593; 93005; 93010

== ENCOUNTER 2018-02-14 11:23 | Inpatient (IN) | payer OTHER ==
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
[2018-02-14] MEDS ORDERED: guaiFENesin/D-METHORPHAN HB 10 ML UNIT-DOSE CUPS PO PRN (14:30)
[2018-02-14] MEDS ORDERED: P-EPHED 60MG/TRIPROLIDI 2.5MG TABLET PO PRN (14:30)
[2018-02-14] MEDS ORDERED: MAG HYDROX/AL HYDROX/SIMETH 30 ML UNIT-DOSE CUP PO PRN (14:30)
[2018-02-14] MEDS ORDERED: NICOTINE POLACRILEX 2 MG GUM BUC PRN (14:30)
[2018-02-14] MEDS ORDERED: ACETAMINOPHEN 325 MG TABLET (FP) PO PRN (14:30)
[2018-02-14] MEDS ORDERED: LOPERAMIDE HCL 2 MG CAPSULE PO PRN (14:30)
[2018-02-14] MEDS ORDERED: MENTHOL/PHENOL 1 EACH UD MM PRN (14:30)
--- NOTE | 2018-02-14 14:30 | HP ---
[facility] Rehab Assess/Revision - Admission History Admitted to Rehab from: [facility] Date of Admission to Rehab: 02/14/18 - Vital signs Vital Signs: Vital Signs Period Temp Pulse Resp BP Sys/Schmidt Pulse Ox Last 24 Hr 98.2 F 101 18 84/62 - Findings Detox History & Physical reviewed: Yes Concur with findings: Yes Comments/Additional Findings: transferred from detox to rehab admission as per protocol Inpatient Rehab Admission - Rehab Admission Criteria Previous failed treatment: Yes Poor recovery environment: Yes Comorbidities: Yes Lacks judgement: No Patient is meeting Inpatient Rehab admission criteria:: Yes
[2018-02-14] MEDS ORDERED: GABAPENTIN 400 MG CAPSULE (FP) PO SCH (16:30)
[2018-02-14] MEDS ORDERED: NICOTINE 14 MG/24 HOURS TOPICAL PATCH TD PRN (16:30)
[2018-02-14] MEDS: buPROPion HCL 75 MG TABLET PO SCH (18:58)
[2018-02-14] MEDS: OLANZapine 2.5 MG TABLET PO SCH (21:45)
[2018-02-14] MEDS: THIAMINE HCL 100 MG TABLET (FP) PO SCH (21:48)
[2018-02-14] MEDS: GABAPENTIN 300 MG CAPSULE (FP) PO SCH (21:49)
[2018-02-14] MEDS: QUEtiapine FUMARATE 100 MG TABLET (FP) PO SCH (21:49)
[2018-02-14] MEDS ORDERED: PT OWN MED DRAWER 7, Y5N ONE (23:58)
[2018-02-15] MEDS ORDERED: METHADONE HCL 40 MG DISPERSABLE TABLET PO SCH (06:00)
[2018-02-15] MEDS ORDERED: METHADONE HCL 40 MG DISPERSABLE TABLET ONE (06:22)
[2018-02-15] MEDS ORDERED: METHADONE HCL 10 MG TABLET ONE (06:22)
[2018-02-15] MEDS: METHADONE 80 MG, METHADONE 30 MG PO SCH (06:24)
[2018-02-15] MEDS: GABAPENTIN 300 MG CAPSULE (FP) PO SCH ×3 (06:24→21:50)
[2018-02-15] MEDS: PRENATAL VITAMINS W/ FOLIC ACID TABLET (FP) PO SCH (09:07)
[2018-02-15] MEDS: buPROPion HCL 75 MG TABLET PO SCH ×2 (09:07→17:43)
[2018-02-15] MEDS ORDERED: PT OWN MED DRAWER 7, Y5N ONE ×3 (17:28→19:49)
[2018-02-15] MEDS: HALOPERIDOL 1 MG TABLET (FP) PO PRN (18:46)
--- NOTE | 2018-02-15 18:46 | PN ---
S Progress Note Note: Psychietrist personnel worker note: As per nursing report patient expressing anxiety and agitation, asking for medications aid. Denies suicidal, homicidal ideation Spoke to patient by phone, patient agrees to take Haldol 1mg po q4 prn for anxiety and agitation. Patient currently on::Wellbutrin 150 mg po bid ,Zyprexa 2 ,5 mg po hs and Seroquel 100 mg po hs. Forestry Laborer started Haldol 1mg po prn q4 for anxiety and agitation
[2018-02-15] MEDS: OLANZapine 2.5 MG TABLET PO SCH (21:50)
[2018-02-15] MEDS: QUEtiapine FUMARATE 100 MG TABLET (FP) PO SCH (21:50)
[2018-02-15] MEDS: THIAMINE HCL 100 MG TABLET (FP) PO SCH (21:51)
[2018-02-15] MEDS: MELATONIN 5 MG TABLETS PO PRN (21:51)
[2018-02-16] MEDS ORDERED: METHADONE HCL 10 MG TABLET ONE (03:21)
[2018-02-16] MEDS ORDERED: METHADONE HCL 40 MG DISPERSABLE TABLET ONE (03:22)
[2018-02-16] MEDS: METHADONE 80 MG, METHADONE 30 MG PO SCH (06:30)
[2018-02-16] MEDS: GABAPENTIN 300 MG CAPSULE (FP) PO SCH ×3 (06:31→21:26)
[2018-02-16] MEDS ORDERED: PT OWN MED DRAWER 7, Y5N ONE ×4 (08:21→19:51)
[2018-02-16] MEDS: PRENATAL VITAMINS W/ FOLIC ACID TABLET (FP) PO SCH (09:14)
[2018-02-16] MEDS: buPROPion HCL 75 MG TABLET PO SCH ×2 (09:14→17:45)
[2018-02-16] MEDS: HALOPERIDOL 1 MG TABLET (FP) PO PRN ×2 (09:15→18:26)
[2018-02-16] MEDS: IBUPROFEN 400 MG TABLET (FP) PO PRN (18:26)
[2018-02-16] MEDS: THIAMINE HCL 100 MG TABLET (FP) PO SCH (21:25)
[2018-02-16] MEDS: MELATONIN 5 MG TABLETS PO PRN (21:26)
[2018-02-16] MEDS: OLANZapine 2.5 MG TABLET PO SCH (21:26)
[2018-02-16] MEDS: QUEtiapine FUMARATE 100 MG TABLET (FP) PO SCH (21:26)
[2018-02-17] MEDS ORDERED: METHADONE HCL 40 MG DISPERSABLE TABLET ONE (04:20)
[2018-02-17] MEDS ORDERED: METHADONE HCL 10 MG TABLET ONE (04:20)
[2018-02-17] MEDS: GABAPENTIN 300 MG CAPSULE (FP) PO SCH ×3 (06:09→21:28)
[2018-02-17] MEDS: METHADONE 80 MG, METHADONE 30 MG PO SCH (06:10)
[2018-02-17] MEDS ORDERED: ONDANSETRON *ODT* 4 MG TABLET SL PRN (09:37)
--- NOTE | 2018-02-17 09:40 | PN ---
[facility] Progress Note Note: NAUSEA,VOMITING ONCE Vital Signs Temperature 97.9 F 02/17/18 07:08 Pulse Rate 84 02/17/18 07:08 Respiratory Rate 18 02/17/18 07:08 Blood Pressure 118/80 02/17/18 07:08 O2 Sat by Pulse Oximetry (%) ZOFRAN 4 MGS SL NOW THEN Q 6 HRS PRN CLOSE MONITORING
[2018-02-17] MEDS: PRENATAL VITAMINS W/ FOLIC ACID TABLET (FP) PO SCH (10:41)
[2018-02-17] MEDS: buPROPion HCL 75 MG TABLET PO SCH ×2 (10:41→17:05)
[2018-02-17] MEDS ORDERED: COLLOIDAL OATMEAL 1 BAR EACH TP PRN (13:03)
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
[2018-02-17] MEDS: HALOPERIDOL 1 MG TABLET (FP) PO PRN (13:42)
[2018-02-17] MEDS: IBUPROFEN 400 MG TABLET (FP) PO PRN (13:44)
[2018-02-17] MEDS ORDERED: PT OWN MED DRAWER 7, Y5N ONE ×2 (16:57→19:40)
[2018-02-17] MEDS: METHYL SALICYLATE/MENTHOL OINT 30 GM TUBE TP SCH (21:27)
[2018-02-17] MEDS: THIAMINE HCL 100 MG TABLET (FP) PO SCH (21:28)
[2018-02-17] MEDS: QUEtiapine FUMARATE 100 MG TABLET (FP) PO SCH (21:28)
[2018-02-17] MEDS: MELATONIN 5 MG TABLETS PO PRN (21:28)
[2018-02-17] MEDS: OLANZapine 2.5 MG TABLET PO SCH (21:28)
[2018-02-18] MEDS ORDERED: METHADONE HCL 10 MG TABLET ONE (05:52)
[2018-02-18] MEDS ORDERED: METHADONE HCL 40 MG DISPERSABLE TABLET ONE (05:52)
[2018-02-18] MEDS: METHADONE 80 MG, METHADONE 30 MG PO SCH (06:31)
[2018-02-18] MEDS: GABAPENTIN 300 MG CAPSULE (FP) PO SCH ×3 (06:31→21:39)
[2018-02-18] MEDS ORDERED: PT OWN MED DRAWER 7, Y5N ONE ×3 (08:55→20:56)
[2018-02-18] MEDS: PRENATAL VITAMINS W/ FOLIC ACID TABLET (FP) PO SCH (10:06)
[2018-02-18] MEDS: buPROPion HCL 75 MG TABLET PO SCH ×2 (10:06→18:03)
[2018-02-18] MEDS: METHYL SALICYLATE/MENTHOL OINT 30 GM TUBE TP SCH ×2 (10:07→21:39)
[2018-02-18] MEDS: HALOPERIDOL 1 MG TABLET (FP) PO PRN (10:07)
[2018-02-18] MEDS: IBUPROFEN 400 MG TABLET (FP) PO PRN (13:34)
--- NOTE | 2018-02-18 14:38 | PN ---
S Progress Note Note: Patient c/o of pain on the left foot, reports is d/t fracture which occurred many years ago. No paresthesia or limitation in ROM reported. Vital Signs Temperature 98.1 F 02/18/18 07:06 Pulse Rate 87 02/18/18 07:06 Respiratory Rate 18 02/18/18 07:06 Blood Pressure 103/67 02/18/18 07:06 O2 Sat by Pulse Oximetry (%) Patient AOx3 self directing, mild anxious No adventitious breath sounds + edema +2 on the left foot, skin intact, full ROM, + pain when standing left foot pain r/t chronic neuropathy Plan: Ibuprofen 600mg TID / PRN bengay PRN cold compress PRN elevate lower extremities PRN continue to monitor
[2018-02-18] MEDS: QUEtiapine FUMARATE 100 MG TABLET (FP) PO SCH (21:39)
[2018-02-18] MEDS: THIAMINE HCL 100 MG TABLET (FP) PO SCH (21:39)
[2018-02-18] MEDS: OLANZapine 2.5 MG TABLET PO SCH (21:39)
[2018-02-18] MEDS: MELATONIN 5 MG TABLETS PO PRN (21:40)
[2018-02-19] MEDS ORDERED: METHADONE HCL 10 MG TABLET ONE (03:25)
[2018-02-19] MEDS ORDERED: METHADONE HCL 40 MG DISPERSABLE TABLET ONE (03:25)
[2018-02-19] MEDS: GABAPENTIN 300 MG CAPSULE (FP) PO SCH ×3 (06:50→21:36)
[2018-02-19] MEDS: METHADONE 80 MG, METHADONE 30 MG PO SCH (06:50)
[2018-02-19] MEDS ORDERED: PT OWN MED DRAWER 7, Y5N ONE (08:59)
[2018-02-19] MEDS: PRENATAL VITAMINS W/ FOLIC ACID TABLET (FP) PO SCH (10:26)
[2018-02-19] MEDS: buPROPion HCL 75 MG TABLET PO SCH ×2 (10:26→17:43)
[2018-02-19] MEDS: METHYL SALICYLATE/MENTHOL OINT 30 GM TUBE TP SCH ×2 (10:27→22:14)
[2018-02-19] MEDS: IBUPROFEN 600 MG TABLET (FP) PO PRN ×2 (13:37→21:38)
[2018-02-19] MEDS: HALOPERIDOL 1 MG TABLET (FP) PO PRN ×2 (13:37→21:38)
[2018-02-19] MEDS: THIAMINE HCL 100 MG TABLET (FP) PO SCH (21:36)
[2018-02-19] MEDS: MELATONIN 5 MG TABLETS PO PRN (21:36)
[2018-02-19] MEDS: QUEtiapine FUMARATE 100 MG TABLET (FP) PO SCH (21:36)
[2018-02-19] MEDS: OLANZapine 2.5 MG TABLET PO SCH (22:14)
[2018-02-20] MEDS ORDERED: METHADONE HCL 10 MG TABLET ONE (05:49)
[2018-02-20] MEDS ORDERED: METHADONE HCL 40 MG DISPERSABLE TABLET ONE (05:50)
[2018-02-20] MEDS: METHADONE 80 MG, METHADONE 30 MG PO SCH (06:11)
[2018-02-20] MEDS: GABAPENTIN 300 MG CAPSULE (FP) PO SCH ×3 (06:11→21:28)
[2018-02-20] MEDS: METHYL SALICYLATE/MENTHOL OINT 30 GM TUBE TP SCH ×2 (10:17→21:33)
[2018-02-20] MEDS: PRENATAL VITAMINS W/ FOLIC ACID TABLET (FP) PO SCH (10:17)
[2018-02-20] MEDS: buPROPion HCL 75 MG TABLET PO SCH ×2 (10:17→18:00)
[2018-02-20] MEDS: IBUPROFEN 600 MG TABLET (FP) PO PRN ×2 (10:19→21:31)
[2018-02-20] MEDS: HALOPERIDOL 1 MG TABLET (FP) PO PRN ×2 (10:19→17:56)
[2018-02-20] MEDS: BENZTROPINE MESYLATE 1 MG TABLET (FP) PO PRN (10:56)
[2018-02-20] MEDS: MAGNESIUM CITRATE 300 ML BOTTLE PO PRN (19:04)
[2018-02-20] MEDS: QUEtiapine FUMARATE 100 MG TABLET (FP) PO SCH (21:28)
[2018-02-20] MEDS: THIAMINE HCL 100 MG TABLET (FP) PO SCH (21:28)
[2018-02-20] MEDS: MELATONIN 5 MG TABLETS PO PRN (21:29)
[2018-02-20] MEDS: OLANZapine 2.5 MG TABLET PO SCH (21:30)
[2018-02-21] MEDS ORDERED: METHADONE HCL 10 MG TABLET ONE (03:39)
[2018-02-21] MEDS ORDERED: METHADONE HCL 40 MG DISPERSABLE TABLET ONE (03:39)
[2018-02-21] MEDS: GABAPENTIN 300 MG CAPSULE (FP) PO SCH ×3 (06:14→22:14)
[2018-02-21] MEDS: METHADONE 80 MG, METHADONE 30 MG PO SCH (06:15)
[2018-02-21] MEDS ORDERED: PT OWN MED DRAWER 7, Y5N ONE ×2 (08:49→19:54)
[2018-02-21] MEDS: buPROPion HCL 75 MG TABLET PO SCH ×2 (09:36→17:39)
[2018-02-21] MEDS: METHYL SALICYLATE/MENTHOL OINT 30 GM TUBE TP SCH ×2 (09:36→22:15)
[2018-02-21] MEDS: PRENATAL VITAMINS W/ FOLIC ACID TABLET (FP) PO SCH (09:36)
[2018-02-21] MEDS: BENZTROPINE MESYLATE 1 MG TABLET (FP) PO PRN (13:03)
[2018-02-21] MEDS: HALOPERIDOL 1 MG TABLET (FP) PO PRN (13:03)
--- NOTE | 2018-02-21 15:58 | PN ---
[facility] Progress Note Note: Notified by RN patient c/o constipation with no relief from MOM and Citroma. Will order Fleets enema MA x one dose. Continue to monitor clinically. Vital Signs Temperature 98.3 F 02/21/18 07:02 Pulse Rate 86 02/21/18 07:02 Respiratory Rate 16 02/21/18 07:02 Blood Pressure 103/71 02/21/18 07:02 O2 Sat by Pulse Oximetry (%)
[2018-02-21] MEDS ORDERED: SODIUM PHOSPHATE/NA BIPHOS 133 ML ENEMA PR ONE (16:15)
[2018-02-21] MEDS: IBUPROFEN 600 MG TABLET (FP) PO PRN (17:40)
[2018-02-21] MEDS: DOCUSATE SODIUM 100 MG CAPSULE (FP) PO SCH (22:14)
[2018-02-21] MEDS: THIAMINE HCL 100 MG TABLET (FP) PO SCH (22:14)
[2018-02-21] MEDS: QUEtiapine FUMARATE 100 MG TABLET (FP) PO SCH (22:15)
[2018-02-21] MEDS: OLANZapine 2.5 MG TABLET PO SCH (22:15)
[2018-02-22] MEDS ORDERED: METHADONE HCL 10 MG TABLET PO SCH (06:00)
[2018-02-22] MEDS ORDERED: METHADONE HCL 40 MG DISPERSABLE TABLET ONE (06:01)
[2018-02-22] MEDS ORDERED: METHADONE HCL 10 MG TABLET ONE (06:01)
[2018-02-22] MEDS: DOCUSATE SODIUM 100 MG CAPSULE (FP) PO SCH ×3 (06:15→21:49)
[2018-02-22] MEDS: GABAPENTIN 300 MG CAPSULE (FP) PO SCH ×3 (06:15→21:49)
[2018-02-22] MEDS: METHADONE 80 MG, METHADONE 30 MG PO SCH (06:16)
[2018-02-22] MEDS: PRENATAL VITAMINS W/ FOLIC ACID TABLET (FP) PO SCH (09:34)
[2018-02-22] MEDS: buPROPion HCL 75 MG TABLET PO SCH ×2 (09:34→17:27)
[2018-02-22] MEDS: METHYL SALICYLATE/MENTHOL OINT 30 GM TUBE TP SCH ×2 (09:35→21:50)
[2018-02-22] MEDS: BENZTROPINE MESYLATE 1 MG TABLET (FP) PO PRN (12:53)
[2018-02-22] MEDS: HALOPERIDOL 1 MG TABLET (FP) PO PRN ×2 (12:53→20:13)
[2018-02-22] MEDS: IBUPROFEN 600 MG TABLET (FP) PO PRN ×2 (12:53→20:13)
[2018-02-22] MEDS: THIAMINE HCL 100 MG TABLET (FP) PO SCH (21:49)
[2018-02-22] MEDS: OLANZapine 2.5 MG TABLET PO SCH (21:50)
[2018-02-22] MEDS: QUEtiapine FUMARATE 100 MG TABLET (FP) PO SCH (21:50)
[2018-02-23] MEDS ORDERED: METHADONE HCL 10 MG TABLET ONE (05:50)
[2018-02-23] MEDS ORDERED: METHADONE HCL 40 MG DISPERSABLE TABLET ONE (05:50)
[2018-02-23] MEDS: DOCUSATE SODIUM 100 MG CAPSULE (FP) PO SCH ×3 (06:10→21:24)
[2018-02-23] MEDS: GABAPENTIN 300 MG CAPSULE (FP) PO SCH ×3 (06:10→21:24)
[2018-02-23] MEDS: METHADONE 80 MG, METHADONE 30 MG PO SCH (06:10)
[2018-02-23] MEDS: PRENATAL VITAMINS W/ FOLIC ACID TABLET (FP) PO SCH (09:44)
[2018-02-23] MEDS: buPROPion HCL 75 MG TABLET PO SCH ×2 (09:44→17:28)
[2018-02-23] MEDS: BENZTROPINE MESYLATE 1 MG TABLET (FP) PO PRN (09:45)
[2018-02-23] MEDS: HALOPERIDOL 1 MG TABLET (FP) PO PRN ×2 (09:45→17:27)
[2018-02-23] MEDS: METHYL SALICYLATE/MENTHOL OINT 30 GM TUBE TP SCH ×2 (09:45→21:24)
[2018-02-23] MEDS: IBUPROFEN 600 MG TABLET (FP) PO PRN (09:46)
[2018-02-23] MEDS: THIAMINE HCL 100 MG TABLET (FP) PO SCH (21:23)
[2018-02-23] MEDS: QUEtiapine FUMARATE 100 MG TABLET (FP) PO SCH (21:23)
[2018-02-23] MEDS: OLANZapine 2.5 MG TABLET PO SCH (21:24)
[2018-02-23] MEDS: MELATONIN 5 MG TABLETS PO PRN (21:25)
[2018-02-24] MEDS ORDERED: METHADONE HCL 10 MG TABLET ONE (03:20)
[2018-02-24] MEDS ORDERED: METHADONE HCL 40 MG DISPERSABLE TABLET ONE (03:20)
[2018-02-24] MEDS: GABAPENTIN 300 MG CAPSULE (FP) PO SCH ×3 (06:16→21:29)
[2018-02-24] MEDS: DOCUSATE SODIUM 100 MG CAPSULE (FP) PO SCH ×3 (06:16→21:29)
[2018-02-24] MEDS: METHADONE 80 MG, METHADONE 30 MG PO SCH (06:16)
[2018-02-24] MEDS ORDERED: PT OWN MED DRAWER 7, Y5N ONE ×3 (08:23→15:52)
[2018-02-24] MEDS: PRENATAL VITAMINS W/ FOLIC ACID TABLET (FP) PO SCH (10:06)
[2018-02-24] MEDS: buPROPion HCL 75 MG TABLET PO SCH ×2 (10:06→17:14)
[2018-02-24] MEDS: METHYL SALICYLATE/MENTHOL OINT 30 GM TUBE TP SCH ×2 (10:06→21:30)
[2018-02-24] MEDS: IBUPROFEN 600 MG TABLET (FP) PO PRN ×2 (10:08→19:32)
[2018-02-24] MEDS: BENZTROPINE MESYLATE 1 MG TABLET (FP) PO PRN (10:08)
[2018-02-24] MEDS: HALOPERIDOL 1 MG TABLET (FP) PO PRN ×2 (10:08→17:14)
[2018-02-24] MEDS: QUEtiapine FUMARATE 100 MG TABLET (FP) PO SCH (21:29)
[2018-02-24] MEDS: MELATONIN 5 MG TABLETS PO PRN (21:29)
[2018-02-24] MEDS: THIAMINE HCL 100 MG TABLET (FP) PO SCH (21:29)
[2018-02-24] MEDS: OLANZapine 2.5 MG TABLET PO SCH (21:30)
[2018-02-25] MEDS ORDERED: METHADONE HCL 10 MG TABLET ONE (03:14)
[2018-02-25] MEDS ORDERED: METHADONE HCL 40 MG DISPERSABLE TABLET ONE (03:15)
[2018-02-25] MEDS: METHADONE 80 MG, METHADONE 30 MG PO SCH (06:09)
[2018-02-25] MEDS: GABAPENTIN 300 MG CAPSULE (FP) PO SCH ×3 (06:10→21:34)
[2018-02-25] MEDS: DOCUSATE SODIUM 100 MG CAPSULE (FP) PO SCH ×3 (06:10→21:34)
[2018-02-25] MEDS: PRENATAL VITAMINS W/ FOLIC ACID TABLET (FP) PO SCH (10:21)
[2018-02-25] MEDS: METHYL SALICYLATE/MENTHOL OINT 30 GM TUBE TP SCH ×2 (10:22→21:30)
[2018-02-25] MEDS: buPROPion HCL 75 MG TABLET PO SCH ×2 (10:22→17:09)
[2018-02-25] MEDS: HALOPERIDOL 1 MG TABLET (FP) PO PRN (13:16)
[2018-02-25] MEDS: BENZTROPINE MESYLATE 1 MG TABLET (FP) PO PRN (13:16)
[2018-02-25] MEDS: IBUPROFEN 600 MG TABLET (FP) PO PRN (13:17)
[2018-02-25] MEDS: MAGNESIUM HYDROX 2400MG/30ML ORAL SUSPENSION 30 ML CUP PO PRN (19:29)
[2018-02-25] MEDS: OLANZapine 2.5 MG TABLET PO SCH (21:30)
[2018-02-25] MEDS: THIAMINE HCL 100 MG TABLET (FP) PO SCH (21:34)
[2018-02-25] MEDS: QUEtiapine FUMARATE 100 MG TABLET (FP) PO SCH (21:34)
[2018-02-25] MEDS: MELATONIN 5 MG TABLETS PO PRN (21:35)
[2018-02-26] MEDS ORDERED: METHADONE HCL 40 MG DISPERSABLE TABLET ONE (03:23)
[2018-02-26] MEDS ORDERED: METHADONE HCL 10 MG TABLET ONE (03:23)
[2018-02-26] MEDS: METHADONE 80 MG, METHADONE 30 MG PO SCH (06:26)
[2018-02-26] MEDS: DOCUSATE SODIUM 100 MG CAPSULE (FP) PO SCH ×3 (06:27→21:33)
[2018-02-26] MEDS: GABAPENTIN 300 MG CAPSULE (FP) PO SCH ×3 (06:27→21:32)
[2018-02-26] MEDS: PRENATAL VITAMINS W/ FOLIC ACID TABLET (FP) PO SCH (10:08)
[2018-02-26] MEDS: METHYL SALICYLATE/MENTHOL OINT 30 GM TUBE TP SCH ×2 (10:09→21:33)
[2018-02-26] MEDS: buPROPion HCL 75 MG TABLET PO SCH ×2 (10:09→17:35)
[2018-02-26] MEDS: BENZTROPINE MESYLATE 1 MG TABLET (FP) PO PRN (10:10)
[2018-02-26] MEDS: HALOPERIDOL 1 MG TABLET (FP) PO PRN ×2 (10:10→21:32)
[2018-02-26] MEDS: IBUPROFEN 600 MG TABLET (FP) PO PRN ×2 (10:11→21:32)
[2018-02-26] MEDS ORDERED: PT OWN MED DRAWER 7, Y5N ONE ×2 (13:38→20:28)
[2018-02-26] MEDS: MAGNESIUM HYDROX 2400MG/30ML ORAL SUSPENSION 30 ML CUP PO PRN (20:09)
[2018-02-26] MEDS: QUEtiapine FUMARATE 100 MG TABLET (FP) PO SCH (21:32)
[2018-02-26] MEDS: THIAMINE HCL 100 MG TABLET (FP) PO SCH (21:32)
[2018-02-26] MEDS: OLANZapine 2.5 MG TABLET PO SCH (21:33)
[2018-02-27] MEDS ORDERED: METHADONE HCL 40 MG DISPERSABLE TABLET ONE (03:25)
[2018-02-27] MEDS ORDERED: METHADONE HCL 10 MG TABLET ONE (03:25)
[2018-02-27] MEDS: METHADONE 80 MG, METHADONE 30 MG PO SCH (06:12)
[2018-02-27] MEDS: DOCUSATE SODIUM 100 MG CAPSULE (FP) PO SCH ×3 (06:13→21:37)
[2018-02-27] MEDS: GABAPENTIN 300 MG CAPSULE (FP) PO SCH ×3 (06:13→21:37)
[2018-02-27] MEDS: buPROPion HCL 75 MG TABLET PO SCH ×2 (10:16→17:04)
[2018-02-27] MEDS: METHYL SALICYLATE/MENTHOL OINT 30 GM TUBE TP SCH ×2 (10:16→21:38)
[2018-02-27] MEDS: PRENATAL VITAMINS W/ FOLIC ACID TABLET (FP) PO SCH (10:16)
[2018-02-27] MEDS: HALOPERIDOL 1 MG TABLET (FP) PO PRN (10:17)
[2018-02-27] MEDS: BENZTROPINE MESYLATE 1 MG TABLET (FP) PO PRN (10:17)
[2018-02-27] MEDS: MAGNESIUM CITRATE 300 ML BOTTLE PO PRN (10:18)
[2018-02-27] MEDS ORDERED: PT OWN MED DRAWER 7, Y5N ONE ×2 (12:00→20:30)
[2018-02-27] MEDS: QUEtiapine FUMARATE 100 MG TABLET (FP) PO SCH (21:37)
[2018-02-27] MEDS: THIAMINE HCL 100 MG TABLET (FP) PO SCH (21:37)
[2018-02-27] MEDS: OLANZapine 2.5 MG TABLET PO SCH (21:38)
[2018-02-28] MEDS: DOCUSATE SODIUM 100 MG CAPSULE (FP) PO SCH (06:20)
[2018-02-28] MEDS: GABAPENTIN 300 MG CAPSULE (FP) PO SCH (06:20)
[2018-02-28] MEDS ORDERED: METHADONE HCL 10 MG TABLET PO SCH (06:30)
[2018-02-28] MEDS ORDERED: METHADONE 80 MG, METHADONE 30 MG PO SCH (06:30)
[2018-02-28] MEDS ORDERED: METHADONE HCL 40 MG DISPERSABLE TABLET ONE (06:31)
[2018-02-28] MEDS ORDERED: METHADONE HCL 10 MG TABLET ONE (06:31)
[2018-02-28 07:25] VITALS: BP 90/60; PULSE 92; TEMP 98.3
--- NOTE | 2018-02-28 08:18 | PN ---
Psychiatric Progress Note Vital Signs: Vital Signs Period Temp Pulse Resp BP Sys/Schmidt Pulse Ox Last 24 Hr 98.3 F 92 17-18 90/60 Date of Session: 02/28/18 Chief Complaint:: Discharge visit HPI: Alcohol,Cocaine and Opioid dependence comorbid with PTSD,Bipolar disorder, ROS: Hep C. Current Medications: Active Medications Generic Name Dose Route Start Last Admin Trade Name Freq PRN Reason Stop Dose Admin Acetaminophen 650 mg 02/14/18 14:30 Tylenol - PO Q4H PRN FEVER Al Hydroxide/Mg Hydroxide 30 ml 02/14/18 14:30 Mylanta Oral Suspension - PO Q6H PRN DYSPEPSIA Benztropine Mesylate 0.5 mg 02/20/18 10:16 02/27/18 10:17 Cogentin - PO 0.5 mg DAILY PRN Administration AGITATION Bupropion HCl 150 mg 02/14/18 18:00 02/27/18 17:04 Wellbutrin - PO 150 mg BID@1000,1800 ZABRINA Administration Colloidal Oatmeal 1 applic 02/17/18 13:03 02/17/18 18:08 Aveeno Soap - TP 1 applic DAILY PRN Administration HYGEINE Docusate Sodium 100 mg 02/21/18 22:00 02/28/18 06:20 Colace - PO 100 mg TID ZABRINA Administration Eucalyptus/Menthol/Phenol/Sorbitol 1 each 02/14/18 14:30 02/24/18 19:33 Cepastat Lozenge - MM 1 each Q4H PRN Administration SORE THROAT Gabapentin 300 mg 02/14/18 17:14 02/28/18 06:20 Neurontin - PO 300 mg TID ZABRINA Administration Guaifenesin 10 ml 02/14/18 14:30 Robitussin Dm - PO Q6H PRN COUGH Haloperidol 1 mg 02/15/18 18:41 02/27/18 10:17 Haldol - PO 1 mg Q4HWA PRN Administration AGITATION Ibuprofen 600 mg 02/18/18 14:33 02/26/18 21:32 Motrin - PO 600 mg Q8H PRN Administration Pain Level 4-6 Loperamide HCl 4 mg 02/14/18 14:30 Imodium - PO Q6H PRN DIARRHEA Magnesium Hydroxide 30 ml 02/14/18 14:30 02/26/18 20:09 Milk Of Magnesia - PO 30 ml DAILY PRN Administration CONSTIPATION Melatonin 5 mg 02/14/18 22:00 02/25/18 21:35 Melatonin PO 5 mg HS PRN Administration INSOMNIA Methadone HCl 80 mg/ Methadone 110 mg 02/28/18 06:30 02/28/18 06:39 HCl 30 mg PO 110 mg DAILY@0600 ZABRINA Administration Methyl Salicylate 1 applic 02/17/18 22:00 02/27/18 21:38 Trevor-Tolbert - TP Not Given BID ZABRINA Nicotine 14 mg 02/14/18 16:30 Nicoderm Patch - TD DAILY PRN WITHDRAWAL(CONT SUBST) Nicotine Polacrilex 2 mg 02/14/18 14:30 Nicorette Gum - BUC Q2H PRN NICOTINE REPLACEMENT RX Olanzapine 2.5 mg 02/14/18 22:00 02/27/18 21:38 Zyprexa - PO 2.5 mg HS ZABRINA Administration Ondansetron HCl 4 mg 02/17/18 09:37 02/17/18 11:27 Zofran Odt - SL 4 mg Q6H PRN Administration NAUSEA AND/OR VOMITING Multivit/Folic Acid/Iron 1 tab 02/15/18 10:00 02/27/18 10:16 Vitamins (Sjr) - PO 1 tab DAILY ZABRINA Administration Pseudoephedrine/Triprolidine 1 combo 02/14/18 14:30 Actifed - PO TID PRN NASAL CONGESTION Quetiapine Fumarate 100 mg 02/14/18 22:00 02/27/18 21:37 Seroquel - PO 100 mg HS ZABRINA Administration Thiamine HCl 100 mg 02/14/18 22:00 02/27/18 21:37 Vitamin B1 - PO Not Given HS ZABRINA Current Side Effect: No Lab tests ordered: No Lab tests reviewed: Yes Provider note:: Patient completed this program today.She has met her treatment goals and will continue to address her issues on outpatient basis at [facility] in the [place].Patient reports finding that current medications: Seroquel 100 mg po hs,Neurontin 300 mg po tid and Cogentin 0,5 mg po bid help to cope with mood instability,sleeping dificulties and anxiety.Scripts for 30 days provided. Supportive therapy provided focusing on relapse prevention. Patient is stable for discharge today. Total face to face time:: 30 Mental Status Exam - Mental Status Exam Alert and Oriented to: Time, Place, Person Cognitive Function: Grossly Intact Patient Appearance: Well Groomed Mood: Hopeful, Euthymic Affect: Appropriate, Mood Congruent Patient Behavior: Cooperative Speech Pattern: Clear Voice Loudness: Normal Thought Process: Goal Oriented Thought Disorder: Not Present Hallucinations: Denies Suicidal Ideation: Denies Homicidal Ideation: Denies Insight/Judgement: Fair Sleep: Fair Appetite: Good Muscle strength/Tone: Normal Gait/Station: Normal Psychiatric Treatment Plan - Problem List (3) Nicotine dependence Qualifiers: Nicotine product type: cigarettes Substance use status: in withdrawal Qualified Code(s): F17.213 - Nicotine dependence, cigarettes, with withdrawal (7) Hepatitis C Qualifiers: Viral hepatitis chronicity: carrier Qualified Code(s): B18.2 - Chronic viral hepatitis C
[2018-02-28] MEDS: buPROPion HCL 75 MG TABLET PO SCH (09:02)
[2018-02-28] MEDS: METHYL SALICYLATE/MENTHOL OINT 30 GM TUBE TP SCH (09:02)
[2018-02-28] MEDS: PRENATAL VITAMINS W/ FOLIC ACID TABLET (FP) PO SCH (09:02)
[2018-02-28] MEDS: IBUPROFEN 600 MG TABLET (FP) PO PRN (09:03)
== END 2018-02-28 09:37 | disposition home or self-care (01) | DRG 772 ==
LOC: YASAS 11:23 → Y3E 11:24
PROVIDERS: ADMIT Psychiatry & Neurology Psychiatry; ATTEND Psychiatry & Neurology Psychiatry
PROC: HZ42ZZZ Group Counseling for Substance Abuse Treatment, Cognitive-Behavioral (ICD-10-PCS; principal; 2018-02-14)
DX: F10.230 Alcohol dependence with withdrawal, uncomplicated (principal); F14.20 Cocaine dependence, uncomplicated; F17.210 Nicotine dependence, cigarettes, uncomplicated; F43.10 Post-traumatic stress disorder, unspecified; F31.9 Bipolar disorder, unspecified; B18.2 Chronic viral hepatitis C; M79.672 Pain in left foot; R11.2 Nausea with vomiting, unspecified
CPT/HCPCS: Q0162